=== PATIENT | female | born 1990 | race African-American/Black ===

== ENCOUNTER 2021-06-01 16:24 | Emergency (ER) | payer BC, SELFPAY ==
[2021-06-01 16:39] VITALS: BP 145/80; PULSE 89; RESP 17; TEMP 36.6; O2SAT 100
--- NOTE | 2021-06-01 17:16 | ED.PREGNANCY ---
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 Reports she has had a normal ultrasound this . Her OB is Dr. Greer. Her blood type is A positive. Denies any pelvic cramping or urinary symptoms. Related Data Home Medications Medication Instructions Recorded Confirmed gut-vhamwgz-exkqm-irn pkg PO 06/01/21 [Chewable ] Allergies Allergy/AdvReac Type Severity Reaction Status Date / Time No Known Allergies Allergy Unverified 03/19/15 15:52 Review of Systems Review of Systems: CONSTITUTIONAL: Denies fever GASTROINTESTINAL: Denies abdominal pain GENITOURINARY: Denies dysuria or hematuria. All systems reviewed & are unremarkable except as noted in HPI and below PMFSH Past Medical History Medical History (Updated 06/01/21 @ 19:58 by Shanda Maravilla PA-C) No active medical problems Social History Social History (Updated 06/01/21 @ 17:19 by Shanda Maravilla PA-C) Smoking status: Never smoker Exam Narrative: GENERAL: Well-appearing, well-nourished, and in no acute distress. HEAD: Normocephalic, atraumatic. EYES: EOMI. CHEST: Clear to auscultation. No respiratory distress. No wheezes rales or rhonchi HEART: Regular rate and rhythm. No murmur heard. Normal peripheral pulses. ABDOMEN: Soft, nontender, nondistended, normal active bowel sounds. EXTREMITIES: Normal range of motion. No edema. SKIN: Warm, dry, no rash. NEURO: No focal deficits. Alert and oriented x3. PSYCH: Normal mood and affect PELVIC: Small amount of dark red blood in the vaginal vault Course Consultations Consultation #1: Spoke with Dr. Correa about patient and work-up. Date: 06/01/21 Time: 19:56 Vital Signs Vital signs: Vital Signs Temperature 97.8 F 06/01/21 16:39 Pulse Rate 89 06/01/21 16:39 Respiratory Rate 17 06/01/21 16:39 Blood Pressure 145/80 H 06/01/21 16:39 Pulse Oximetry 100 06/01/21 16:39 Temperature 97.8 F 06/01/21 16:39 Pulse Rate 81 06/01/21 18:26 Respiratory Rate 17 06/01/21 16:39 Blood Pressure 123/74 06/01/21 18:26 Pulse Oximetry 100 06/01/21 16:39 MDM - OB/Uterine Contractions MDM Narrative Medical decision making narrative: Patient presents the emergency department for vaginal bleeding. 13 weeks tomorrow. Her vitals are stable. Hemoglobin is 11.3. Patient is a positive. Reports she has had a normal ultrasound this . heart tones noted at 155 in the ED. Small amount of dark red blood noted in the vaginal vault. Spoke with Dr. Correa about patient and work-up. Patient is stable and felt appropriate for further outpatient evaluation. She was given warnings to return to the ER Lab Data Attestation: I reviewed the patient's lab results. Result diagrams: 06/01/21 17:06 Labs: Lab Results 06/01/21 06/01/21 06/01/21 Range/Units 17:06 17:06 17:07 WBC 8.3 (4.5-10.0) K/mm3 RBC 3.85 L (4.2-5.4) M/mm3 Hgb 11.3 L (12.0-15.0) g/dL Hct 34.5 L (37.0-47.0) % MCV 89.6 (80-100) fl MCH 29.4 (26-34) pg MCHC 32.8 (32-36) g/dl RDW 13.7 (11.5-14.5) % Plt Count 325 (150-375) k/mm3 MPV 10.1 (7.4-10.4) fl Immature Gran % (Auto) 0.8 H (0-0.5) % Neut % (Auto) 64.3 (45.5-73.1) % Lymph % (Auto) 27.6 (18.3-44.2) % [place] % (Auto) 5.9 (2.6-8.5) % Eos % (Auto) 1.0 (0-4.4) % Baso % (Auto) 0.4 (0.2-1.2) % Lymph # (Auto) 2.30 (0.9-3.2) K/mm3 [place] # (Auto) 0.5 (0.1-0.6) K/mm3 Eos # (Auto) 0.1 (0-0.3) K/mm3 Baso # (Auto) 0.0 (0.0-0.1) K/mm3 Abs Immat Gran (auto) 0.07 H (0.00-0.031) K/mm3 Absolute Nicola
[2021-06-01 17:25] LABS: Basophils Percent Auto 0.4 % (0.2-1.2); Eosinophils Absolute Auto 0.1 K/mm3 (0-0.3); Hematocrit 34.5 % (37.0-47.0); Hemoglobin 11.3 g/dL (12.0-15.0); Immature Granulocyte Absolute 0.07 K/mm3 (0.00-0.031); Immature Granulocyte Percent A 0.8 % (0-0.5); Lymphocytes Percent Auto 27.6 % (18.3-44.2); Mean Corpuscular HGB Conc 32.8 g/dl (32-36); Mean Corpuscular Hemoglobin 29.4 pg (26-34); Mean Corpuscular Volume 89.6 fl (80-100); Mean Platelet Volume 10.1 fl (7.4-10.4); Monocytes Absolute Auto 0.5 K/mm3 (0.1-0.6); Monocytes Percent Auto 5.9 % (2.6-8.5); Neutrophils Absolute Auto 5.4 K/mm3 (1.3-6.7); Neutrophils Percent Auto 64.3 % (45.5-73.1); Platelet Count Result 325 k/mm3 (150-375); Red Blood Count 3.85 M/mm3 (4.2-5.4); Red Cell Distribution Width 13.7 % (11.5-14.5); White Blood Count 8.3 K/mm3 (4.5-10.0)
[2021-06-01 18:25] VITALS: BP 119/71; PULSE 74
[2021-06-01 18:26] VITALS: BP 122/75; BP 123/74; PULSE 66; PULSE 81
[2021-06-01 20:02] VITALS: BP 144/80; PULSE 87; RESP 18; O2SAT 100
== END 2021-06-01 20:03 | disposition home or self-care (01) ==
PROVIDERS: Emergency Medicine; Emergency Provider Family Medicine
DX: O20.9 Hemorrhage in early pregnancy, unspecified (principal); Z3A.13 13 weeks gestation of pregnancy
CPT/HCPCS: 36415; 84702; 85025; 85461; 99284

== ENCOUNTER 2021-06-03 22:29 | Emergency (ER) | payer BC, SELFPAY ==
--- NOTE | ~2021-06-03 | US_ITS ---
US OB <= 14 weeks fetus DATE: 06/03/2021 23:42 INDICATION: Vaginal bleeding in patient TECHNIQUE: Real-time imaging, color flow imaging and Doppler analysis COMPARISON: None FINDINGS: The uterus measures 13 cm height, 6.3 cm AP and 6.9 cm transverse dimension. There is a gestational sac in the lower uterine segment. A remnant is suggested but no he art rate. Right ovary measures 3.7 x 2.2 x 2.7 cm. Left ovary measures 2.5 x 2.0 x 2.0 cm. No pelvic mass or ab normal free pelvic fluid collection is noted. IMPRESSION: demise. Impending Reviewed, dictated and finalized at [facility]. Reviewed, dictated and finalized at [facility]. IMPRESSION: demise. Impending
[2021-06-03 22:31] VITALS: BP 116/55; PULSE 65; RESP 18; TEMP 36.4; O2SAT 98
--- NOTE | 2021-06-03 22:43 | ED.FEMALEGU ---
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 Patient reports acute onset sharp, cramping abdominal pain approximately 2 hours ago. Patient states that she works from home, was finishing up work for the evening with acute onset of pain. Patient without radiation of the pain to the back, upper abdomen. No associated diarrhea, constipation, dysuria or hematuria. She does report vaginal bleeding that is moderate in nature with clots present. She states that this has otherwise been uncomplicated, no history of labor or complications in her previous pregnancies. She does have 2 living children. She follows with Dr. Greer for her obstetrical care. Her blood type is A; verified in the chart. No recent pelvic trauma. She does report vaginal intercourse 4 days ago. Related Data Home Medications Medication Instructions Recorded Confirmed tts-legpmmn-ktsdj-irn pkg PO 06/01/21 [Chewable ] Allergies Allergy/AdvReac Type Severity Reaction Status Date / Time No Known Allergies Allergy Unverified 06/03/21 22:56 Review of Systems Review of Systems: CONSTITUTIONAL: Denies fever, chills, or sweats. EYES: Denies visual changes, redness, or discharge. ENT: Denies rhinorrhea, congestion, sore throat, or otalgia. CARDIOVASCULAR: Denies chest pain, palpitations, or edema. RESPIRATORY: Denies cough or dyspnea. GASTROINTESTINAL: Reports lower pelvic pain without nausea or vomiting GENITOURINARY: Denies dysuria or hematuria. Reports vaginal bleeding and blood clots present. SKIN: Denies rash or itching. MUSCULOSKELETAL: Denies back pain, joint pain, or myalgia. NEUROLOGIC: Denies headache, numbness, or weakness. [facility] Past Medical History Medical History No active medical problems Social History Social History Smoking status: Never smoker Exam Narrative: GENERAL: Awake, alert, uncomfortable appearing HEAD: Normocephalic, atraumatic. EYES: PERRLA and EOMI. ENT: Nares clear, no rhinorrhea or epistaxis. Mucous membranes moist. NECK: Supple. CHEST: No respiratory distress, breathing even and non labored HEART: Regular rate, sinus rhythm ABDOMEN:Non distended, positive suprapubic tenderness without guarding, rebound or rigidity : Labia majora and minora normal without lesions. Vagina with blood present, no parts identified. No large blood clots. There is discomfort and tenderness on exam. Os is dilated to 1 cm. No cervical motion tenderness. No adnexal tenderness or fullness bilaterally. No other discharge present. EXTREMITIES: Normal range of motion. No edema. SKIN: Warm, dry, no rash. NEURO:No focal deficits. Alert and oriented x3 Course Vital Signs Vital signs: Vital Signs Temperature 36.4 C L 06/03/21 22:31 Pulse Rate 65 06/03/21 22:31 Respiratory Rate 18 06/03/21 22:31 Blood Pressure 116/55 L 06/03/21 22:31 Pulse Oximetry 98 06/03/21 22:31 Temperature 36.4 C L 06/03/21 22:31 Pulse Rate 74 06/03/21 23:17 Respiratory Rate 11 L 06/03/21 23:17 Blood Pressure 122/83 06/03/21 23:17 Pulse Oximetry 94 06/03/21 23:17 MDM - Female Genitourinary MDM Narrative Medical decision making narrative: Patient presented for evaluation of lower abdominal pain and vaginal bleeding in the setting of early . The time of assessment, ABCs are intact and vital signs are stable. No sign of significant hemorrhage on pelvic exam. There are some blood clots present in the vaginal vault. No brisk b
[2021-06-03 22:56] VITALS: BP 138/73; PULSE 77; RESP 16; O2SAT 100
--- NOTE | 2021-06-03 23:01 | PC.NURSE ---
u/s called in per kellen gayle
[2021-06-03 23:17] VITALS: BP 122/83; PULSE 74; RESP 11; O2SAT 94
[2021-06-03] MEDS: ONDANSETRON INJ 4 MG/2 ML VIAL IV PUSH (23:25)
[2021-06-03] MEDS: SODIUM CHLORIDE 0.9% IV 1,000 ML 999 ML IV CONT (23:26)
[2021-06-03] MEDS: MORPHINE SULFATE (*CRX) 4 MG/ML INJ IV PUSH (23:26)
--- NOTE | 2021-06-03 23:28 | PC.NURSE ---
Pt to ultrasound at this time
[2021-06-03 23:29] LABS: Basophils Percent Auto 0.3 % (0.2-1.2); Eosinophils Absolute Auto 0.1 K/mm3 (0-0.3); Eosinophils Percent Auto 0.7 % (0-4.4); Hematocrit 36.6 % (37.0-47.0); Hemoglobin 12.1 g/dL (12.0-15.0); Immature Granulocyte Absolute 0.06 K/mm3 (0.00-0.031); Immature Granulocyte Percent A 0.6 % (0-0.5); Lymphocytes Absolute Auto 1.82 K/mm3 (0.9-3.2); Lymphocytes Percent Auto 18.6 % (18.3-44.2); Mean Corpuscular HGB Conc 33.1 g/dl (32-36); Mean Corpuscular Hemoglobin 29.3 pg (26-34); Mean Corpuscular Volume 88.6 fl (80-100); Mean Platelet Volume 9.8 fl (7.4-10.4); Monocytes Absolute Auto 0.4 K/mm3 (0.1-0.6); Monocytes Percent Auto 3.9 % (2.6-8.5); Neutrophils Absolute Auto 7.4 K/mm3 (1.3-6.7); Neutrophils Percent Auto 75.9 % (45.5-73.1); Platelet Count Result 353 k/mm3 (150-375); Red Blood Count 4.13 M/mm3 (4.2-5.4); Red Cell Distribution Width 13.4 % (11.5-14.5); White Blood Count 9.8 K/mm3 (4.5-10.0)
[2021-06-03 23:41] LABS: Alanine Aminotransferase 11 U/L (4-35); Albumin Level 4.4 g/dL (3.5-5.1); Alkaline Phosphatase 73 U/L (38-126); Anion Gap 11 mmol/L (8-16); Aspartate Amino Transferase 21 U/L (14-36); Bilirubin,Total 0.2 mg/dL (0.2-1.3); Blood Urea Nitrogen 12 mg/dL (7-17); Calcium 9.3 mg/dL (8.4-10.2); Carbon Dioxide 28 mmol/L (22-30); Chloride 100 mmol/L (98-107); Estimated CRCL calculation 114 ml/min; Estimated Glomerular Filt Rate > 60; Glucose 133 mg/dL (65-110); Potassium 3.9 mmol/L (3.4-5.0); Sodium 139 mmol/L (137-145)
[2021-06-03 23:52] LABS: INR 0.9
[2021-06-03 23:53] LABS: Partial Thromboplastin Time 27.2 SECONDS (22.3-36.8)
[2021-06-04 00:43] LABS: Add Urine Microscopic? YES; Appearance Urine Cloudy (Clear); Bacteria Urine Trace /hpf; Bilirubin Urine Negative (Negative); Blood Urine 3+ (Negative); Color Urine Straw (Yellow); Glucose Urine UA Negative (Negative); Ketones Urine Negative (Negative); Leukocyte Esterase Ur Negative LEU/UL (Negative); Mucus Urine Rare /lpf; Nitrate Urine Negative (Negative); Protein Urine 1+ mg/dL (Negative); RBC Urine >75 /hpf (0-2); Specific Grav Ur 1.021 (1.001-1.035); Squamous Epithelial Cell Urine Few /hpf (Few); Urobilinogen Urine Negative mg/dL (<2.0)
[2021-06-04 00:55] VITALS: BP 124/70; PULSE 76; RESP 20; O2SAT 100
== END 2021-06-04 00:57 | disposition home or self-care (01) ==
PROVIDERS: Emergency Provider Emergency Medicine
DX: O03.4 Incomplete spontaneous abortion without complication (principal)
CPT/HCPCS: 36415; 76801; 80053; 81001; 81025; 84702; 85025; 85461; 85610; 85730; 87086; 87088; 96361; 96374; 96375; 99284; J2270; J2405; J7030

== ENCOUNTER 2021-06-08 11:14 | Outpatient (CLI) | payer BC, SELFPAY ==
--- NOTE | ~2021-06-08 | US_ITS ---
EXAMINATION: US pelvic complete EXAM DATE: 06/08/2021 11:49 INDICATION: Incomplete spontaneous . TECHNIQUE: Pelvic transabdominal sonogram was performed. There are multiple grayscale and Doppler im ages available for interpretation. There is no prior study for comparison. FINDINGS: Uterus measures 11.1 x 7.5 x 5.5 cm, and is morphologically normal. Endometrial stripe me asures 5 mm, within normal limits. There is no free pelvic fluid. Right adnexa: The ovary measures 4.2 x 2.6 x 2.3 cm and is morphologically normal. Ovarian vascular f low confirmed. Left adnexa: The ovary measures 3.2 x 2.4 x 1.7 cm and is morphologically normal. Ovarian vascular fl ow confirmed. IMPRESSION: 1. Unremarkable pelvic ultrasound exam. Reviewed, dictated and finalized at location [facility].
== END 2021-06-08 11:15 | disposition home or self-care (01) ==
PROVIDERS: Visit Provider Obstetrics & Gynecology
DX: O03.4 Incomplete spontaneous abortion without complication (principal); Z3A.00 Weeks of gestation of pregnancy not specified
CPT/HCPCS: 76856

== ENCOUNTER 2021-09-04 12:41 | Outpatient (CLI) | payer BC, SELFPAY ==
--- NOTE | ~2021-09-04 | US_ITS ---
US OB <= 14 weeks fetus DATE: 09/04/2021 13:43 INDICATION: Gestational age determination TECHNIQUE: Real-time imaging and Doppler analysis COMPARISON: 06/08/2021 pelvic ultrasound FINDINGS: The uterus measures 13.4 centers height, up to 6.8 cm anteroposterior dimension. A normal-a ppearing intrauterine gestational sac is identified with normal surrounding hyperechogenicity consist ent with decidual reaction. pole and yolk sac are identified. heart rate of 159 bpm. [place]-rump length averages 1.25 cm, consistent with estimated gestational age of 7 weeks 3 day +/- 5 days, AKANKSHA of 04/20/2022. The ovaries appear normal. IMPRESSION: Estimated gestational age is 7 weeks 3 days +/- 5 days; AKANKSHA is 04/20/2022 Reviewed, dictated and finalized at [facility]. Reviewed, dictated and finalized at location [facility]. DEVELOPER IMPRESSION: Estimated gestational age is 7 weeks 3 days +/- 5 days; AKANKSHA is 2021
== END 2021-09-04 12:42 | disposition home or self-care (01) ==
LOC: ANHIMG 12:43
PROVIDERS: PCP Student in an Organized Health Care Education/Training Program; Visit Provider Obstetrics & Gynecology
DX: Z36.9 Encounter for antenatal screening, unspecified (principal); Z3A.01 Less than 8 weeks gestation of pregnancy
CPT/HCPCS: 76801

== ENCOUNTER 2021-09-08 13:52 | Emergency (ER) | payer BC, SELFPAY ==
[2021-09-08 13:56] VITALS: BP 138/81; PULSE 79; RESP 18; TEMP 36.5; O2SAT 100
[2021-09-08 15:52] VITALS: BP 136/72; PULSE 72; TEMP 37.3; O2SAT 99
--- NOTE | 2021-09-08 17:52 | ED.GENADULT ---
HPI - General Adult General Chief complaint: Headache Stated complaint: Carbon monoxide exposure. Time Seen by Provider: 09/08/21 17:32 Source: patient and RN notes reviewed History of Present Illness HPI narrative: Patient is a 30 y/o female complaining of right sided headache starting this morning. She describes her pain as throbbing and rates it as 8/10. She took Tylenol, which did not help much. She has no nausea, vomiting, focal weakness or numbness. She state that there was some gas leak at work and she may have been exposed to carbon monoxide. Of note, she is about 6 week . She has no abdominal pain or vaginal bleeding. Related Data Home Medications Medication Instructions Recorded Confirmed rjo-ntznwxl-khpvy-irn 1 pkg PO 06/01/21 [Chewable ] Allergies Allergy/AdvReac Type Severity Reaction Status Date / Time No Known Allergies Allergy Unverified 06/03/21 22:56 Review of Systems Constitutional: Constitutional: Denies chills, Denies fever(s), Reports headache(s) and Denies weakness Eyes: Eyes: Denies blurry vision ENT: Reports headache(s) and Denies neck pain Cardiovascular: Cardiovascular: Denies chest pain and Denies dyspnea Respiratory: Respiratory: Denies cough and Denies dyspnea Gastrointestinal: Gastrointestinal: Denies abdominal pain, Denies diarrhea, Denies nausea and Denies vomiting Genitourinary: Genitourinary: Denies hematuria and Denies dysuria Musculoskeletal: Musculoskeletal: Denies back pain and Denies neck pain Neurologic: Reports headache(s) and Denies weakness PMFSH Past Medical History Medical History No active medical problems Social History Social History Smoking status: Never smoker Exam Const: General: no acute distress and well developed Orientation/consciousness: oriented to person, oriented to place, oriented to time and patient oriented x3 HENMT: Head: normocephalic Ears: external ears normal General nose exam: Normal external nose present Eyes: General: appearance normal, both eyes and all related structures Conjunctivae: conjunctivae normal Neck: Neck: normal visual inspection and full ROM Chest: Chest palpation & inspection: normal inspection of the chest and no tenderness Resp: Effort & Inspection: normal respiratory effort Auscultation: clear to auscultation bilaterally Cardio: Rate: regular rate Rhythm: regular rhythm GI: GI Palp: No abdominal tenderness and Yes Soft to palpation Skin: General skin exam: normal color and turgor normal Neuro: General: oriented to person, oriented to place, oriented to time and patient oriented x3 Cranial nerves: Yes CN's II-XII intact bilaterally Cognition (Neuro): normal cognition Speech: normal speech Motor exam (neuro): 5/5 motor strength present throughout Sensory Exam: normal sensation Coordination: cuxyel-di-yatj test normal and jxsb-re-wdpy test normal Extrem: General: normal to inspection, full ROM and no pedal edema Psych: Appearance: grossly normal Mental Status: mental status grossly normal Affect: normal affect Course Vital Signs Vital signs: Vital Signs Temperature 36.5 C 09/08/21 13:56 Pulse Rate 79 09/08/21 13:56 Respiratory Rate 18 09/08/21 13:56 Blood Pressure 138/81 09/08/21 13:56 Pulse Oximetry 100 09/08/21 13:56 Temperature 37.3 C 09/08/21 15:52 Pulse Rate 84 09/08/21 18:00 Respiratory Rate 18 09/08/21 18:00 Blood Pressure 132/69 09/08/21 18:00 Pulse Oximetry 100 09/08/21 18:00 Medical Decision Making MDM Narrative Medical decision making narrative: Low PO2 level on blood gas is noted. This is likely due to mixed venous sample. Vital Signs Vital Signs: Vital Signs Temperature 36.5 C 09/08/21 13:56 Pulse Rate 79 09/08/21 13:56 Respiratory Rate 18 09/08/21 13:56 Blood Pressure 138/81 09/08/21
[2021-09-08 17:53] LABS: Basophils Percent Auto 0.3 % (0.2-1.2); Eosinophils Absolute Auto 0.1 K/mm3 (0-0.3); Eosinophils Percent Auto 0.7 % (0-4.4); Hematocrit 32.8 % (37.0-47.0); Immature Granulocyte Absolute 0.05 K/mm3 (0.00-0.031); Immature Granulocyte Percent A 0.7 % (0-0.5); Lymphocytes Absolute Auto 1.86 K/mm3 (0.9-3.2); Lymphocytes Percent Auto 25.4 % (18.3-44.2); Mean Corpuscular HGB Conc 33.5 g/dl (32-36); Mean Corpuscular Hemoglobin 29.1 pg (26-34); Mean Corpuscular Volume 86.8 fl (80-100); Mean Platelet Volume 10.1 fl (7.4-10.4); Monocytes Absolute Auto 0.5 K/mm3 (0.1-0.6); Monocytes Percent Auto 6.2 % (2.6-8.5); Neutrophils Absolute Auto 4.9 K/mm3 (1.3-6.7); Neutrophils Percent Auto 66.7 % (45.5-73.1); Platelet Count Result 341 k/mm3 (150-375); Red Blood Count 3.78 M/mm3 (4.2-5.4); Red Cell Distribution Width 13.4 % (11.5-14.5); White Blood Count 7.3 K/mm3 (4.5-10.0)
[2021-09-08] MEDS: ACETAMINOPHEN 325 MG TABLET 650 MG PO (17:58)
[2021-09-08 18:00] VITALS: BP 132/69; PULSE 84; RESP 18; O2SAT 100
[2021-09-08 18:06] LABS: Anion Gap 7 mmol/L (8-16); Blood Urea Nitrogen 11 mg/dL (7-17); Calcium 8.8 mg/dL (8.4-10.2); Carbon Dioxide 27 mmol/L (22-30); Chloride 98 mmol/L (98-107); Estimated CRCL calculation 138 ml/min; Estimated Glomerular Filt Rate > 60; Glucose 110 mg/dL (65-110); Potassium 3.3 mmol/L (3.4-5.0); Sodium 132 mmol/L (137-145)
[2021-09-08 18:08] LABS: Alveolar/Arterial O2 Gradient 15.7 mmHg; Fractional Inspired Oxygen 21 %; HCO3 ABG 24.9 mEq/l (22.0-26.0); Oxygen Content ABG 16.6 %vol (16.0-22.0); Oxygen Saturation ABG 97.2 % (95.0-100.0); Oxyhemoglobin 95.7 % THb (90.0-100.0); PO2 ABG 89.7 mmHg (80.0-100.0); PO2 FiO2 Ratio Arterial Blood 4.27 %; Total Hemoglobin 12.3 g/dL (12.0-18.0); pH ABG 7.445 (7.350-7.450)
[2021-09-08 18:09] LABS: Device ROOM AIR; Modified Allen's Test Pass; Site Drawn RIGHT RADIAL
[2021-09-08 18:26] LABS: Add Urine Microscopic? YES; Appearance Urine Cloudy (Clear); Bilirubin Urine Negative (Negative); Blood Urine Negative (Negative); Color Urine Yellow (Yellow); Glucose Urine UA Negative (Negative); Ketones Urine Negative (Negative); Leukocyte Esterase Ur Trace LEU/UL (Negative); Mucus Urine Rare /lpf; Nitrate Urine Negative (Negative); Protein Urine Negative (Negative); Specific Grav Ur 1.016 (1.001-1.035); Squamous Epithelial Cell Urine Many /hpf (Few); Urobilinogen Urine Negative mg/dL (<2.0)
[2021-09-08 19:48] LABS: Alveolar/Arterial O2 Gradient 56.7 mmHg; Base Excess ABG 1.1 mEq/l (+/-2.0); Carboxyhemoglobin 0.3 % THb (0-2.0); Fractional Inspired Oxygen 21 %; HCO3 ABG 26.3 mEq/l (22.0-26.0); Methemoglobin ABG 0.2 %THb (0-1.5); Oxygen Content ABG 12.3 %vol (16.0-22.0); PCO2 ABG 44.3 mmHg (35.0-45.0); Reduced Hemoglobin 29.4 %THb (0-5.0); Total Hemoglobin 12.5 g/dL (12.0-18.0); pH ABG 7.392 (7.350-7.450)
[2021-09-08 19:55] LABS: Device ROOM AIR; Modified Allen's Test Pass; Oxygen Saturation ABG 74.4 % (95.0-100.0); Oxyhemoglobin 70.1 % THb (90.0-100.0); Site Drawn RIGHT RADIAL
[2021-09-08 20:12] VITALS: BP 117/69; PULSE 70; RESP 16; O2SAT 98
== END 2021-09-08 20:13 | disposition home or self-care (01) ==
PROVIDERS: Emergency Provider Emergency Medicine; PCP Student in an Organized Health Care Education/Training Program
DX: O99.351 Diseases of the nervous system complicating pregnancy, first trimester (principal); G43.909 Migraine, unspecified, not intractable, without status migrainosus; Z3A.01 Less than 8 weeks gestation of pregnancy
CPT/HCPCS: 36415; 36600; 80048; 81001; 81025; 82375; 82805; 83050; 85025; 99283; A9270

== ENCOUNTER 2022-04-04 15:27 | Observation (INO) | payer BC, SELFPAY ==
--- NOTE | 2022-04-04 15:27 | OBADM ---
This patient, Elvia Guevara, admitted to the OB room OB Post 117 for observation. Patient/family oriented to hospital policies and general routines including ID bracelet, bed and alarms, visiting hours, pain management, procedures, bathroom and other care routines, personal items, smoking policy, room service/diet, and visiting hours. Patient/Family are encouraged to report perceived risks to care and to ask questions if they do not understand what they are told or what they should do.
[2022-04-04 15:44] VITALS: BP 135/65; PULSE 91
[2022-04-04 15:57] VITALS: BMI 48.1
[2022-04-04 16:00] LABS: Appearance Urine Cloudy (Clear); Bilirubin Urine Negative (Negative); Blood Urine Negative (Negative); Color Urine Yellow (Yellow); Glucose Urine UA Negative (Negative); Ketones Urine Negative (Negative); Leukocyte Esterase Ur 1+ LEU/UL (NEGATIVE); Nitrate Urine Negative (Negative); Protein Urine Negative (Negative); Urobilinogen Urine 0.2 mg/dL (<2.0); pH Urine 7.5 (5.0-9.0)
[2022-04-04 16:09] LABS: Bacteria Urine Trace /hpf; RBC Urine 0-2 /hpf (0-2); Squamous Epithelial Cell Urine Many /hpf (Few)
[2022-04-04 16:17] LABS: Add Urine Microscopic? YES
[2022-04-04] MEDS: ACETAMINOPHEN 500 MG TABLET 1000 MG PO (16:34)
--- NOTE | 2022-04-13 18:06 | PM.OBTRLD ---
OB - Triage/Final Diagnosis Visit Information Reason for evaluation: threatened labor Comments/Additional reasons for admission: I have assessed the risk for this patient, Elvia Guevara, and determined that she would benefit from observation care. Evaluation Laboratory results: Laboratory Tests 04/04/22 15:53 Urine Color Yellow Urine Appearance Cloudy H Urine pH 7.5 Ur Specific [place] 1.020 Urine Protein Negative Urine Glucose (UA) Negative Urine Ketones Negative Ur Blood (Man) Negative Urine Nitrate Negative Urine Bilirubin Negative Urine Urobilinogen 0.2 Ur Leukocyte Esterase 1+ H Urine RBC 0-2 Urine WBC 4-6 H Ur Squamous Epith Cells Many H Urine Bacteria Trace
== END 2022-04-04 16:40 | disposition home or self-care (01) ==
PROVIDERS: Obstetrics & Gynecology Gynecology; Admitting Provider Obstetrics & Gynecology; PCP Student in an Organized Health Care Education/Training Program; Visit Provider Obstetrics & Gynecology
DX: O47.1 False labor at or after 37 completed weeks of gestation (principal); Z3A.37 37 weeks gestation of pregnancy
CPT/HCPCS: 81001; 87086; 87088; A9270; G0378; G0379

== ENCOUNTER 2022-04-14 08:03 | Outpatient (CLI) | payer BC, SELFPAY ==
[2022-04-14 09:09] LABS: Hematocrit 31.7 % (37.0-47.0); Hemoglobin 9.6 g/dL (12.0-15.0)
[2022-04-15 07:25] LABS: Rapid Plasma Reagin Non-Reactive (NonReactive)
== END 2022-04-14 08:04 | disposition home or self-care (01) ==
LOC: ANHLAB 08:06
PROVIDERS: PCP Student in an Organized Health Care Education/Training Program; Visit Provider Obstetrics & Gynecology
DX: Z34.93 Encounter for supervision of normal pregnancy, unspecified, third trimester (principal); Z3A.00 Weeks of gestation of pregnancy not specified
CPT/HCPCS: 36415; 85014; 85018; 86592; 86850; 86900; 86901

== ENCOUNTER 2022-04-15 10:02 | Inpatient (IN) | payer BC, SELFPAY ==
[2022-04-15] VITALS (41 sets, daily range): BP systolic 99–123; BP diastolic 43–96; PULSE 66–87; RESP 16–20; TEMP 36.3–36.6; O2SAT 94–100; BMI 45.3
--- NOTE | 2022-04-15 09:58 | PM.IMHP ---
H&P: HPI History of Present Illness Date/Time: 04/15/22 09:58 31-year-old 3 para 2001 female presents for repeat delivery at 39 weeks. records are on the chart but she has had no significant abnormalities throughout this . Chief Complaint: PMFSH Past Medical History Medical History (Updated 04/15/22 @ 10:01 by Attila Greer MD) Anemia taking iron No active medical problems Surgical History Surgical History Delivery by section (09/03/08) primary c/s Delivery by section (03/05/15) rpt c/s History of cosmetic plastic surgery (04/20/20) Liposuction History of gynecological procedure (~10/28/08) mirena iud insertion History of gynecological procedure (12/24/13) mirena iud removal Family History Family History Grandparent Diabetes mellitus maternal grandmother Social History Social History Smoking status: Never smoker Alcohol intake: never Substance use: never 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 Gender identity (if verbalized by the patient): Female Sexual Orientation (if Verbalized by the Patient): Straight or Heterosexual Spiritual care concerns: No Meds Home Medications and Allergies Home Medications Medication Instructions Recorded Confirmed Type ljd-fnsuopc-qncgk-irn < 1 1 pkg PO 06/01/21 03/26/22 History mg-iron oral combo pack ferrous sulfate 325 mg (65 mg 325 mg PO TID 04/05/22 04/05/22 History iron) tablet Allergies Allergy/AdvReac Type Severity Reaction Status Date / Time No Known Allergies Allergy Verified 04/09/22 11:10 Exam Const: General: cooperative, healthy appearing and comfortable Resp: Effort & Inspection: normal respiratory effort Auscultation: clear to auscultation bilaterally Cardio: Rate: regular rate Rhythm: regular rhythm GI: Inspection: normal to inspection, scar and other (Fundal height 42cm) Auscultation: normal bowel sounds : External Female Exam: normal external appearance Speculum Exam - Vagina: normal appearance of the vagina Speculum Exam - Cervix: normal appearance of the cervix Bimanual exam- vagina & uterus: enlarged (42cm heart tone 140) Assessment and Plan Assessment and plan (1) 39 weeks gestation of : Code(s): Z3A.39 - 39 weeks gestation of Status: Acute (2) Previous delivery affecting : Code(s): O34.219 - Maternal care for unspecified type scar from previous delivery Status: Acute Plan Proceed with repeat low transverse section.
--- NOTE | 2022-04-15 10:01 | WPDHPUPDATE1 ---
History and Physical Update Update Date/Time: 04/15/22 10:01 History and Physical has been reviewed, including an updated exam of the patient. There are NO changes in the patient's condition. Risks, benefits, and alternatives have been discussed and questions answered. Patient agrees to proceed with procedure.
--- NOTE | 2022-04-15 10:39 | LDADM ---
This patient, Elvia Guevara, was admitted to Labor/Delivery/Recovery 118 on 04/15/22 at 10:02. Plans for labor, pain management and were discussed with patient. Patient/family oriented to hospital policies and general routines including ID bracelet, bed and alarms, visiting hours, pain management, procedures, bathroom and other care routines, personal items, smoking policy, room service/diet and guest tray routines, infant security routines, and visiting hours. Patient/Family are encouraged to report perceived risks to care and to ask questions if they do not understand what they are told or what they should do. See OBIX for further documentation.
--- NOTE | 2022-04-15 10:52 | P.PNAN_ITS ---
Anes - Eval Pre Procedure Procedure: Operation Date: 04/15/22 12:00 Proposed Procedures p Repeat Section - Attila Greer MD Date/Time: 04/15/22 10:52 Pre Op Diagnosis: REPEAT C/S Patient Data Age: 31 Gender: F Height: 1.63 m Weight: 120 kg Last Vital Signs Pulse 85 04/15/22 10:31 BP 121/73 04/15/22 10:31 O2 Del Method Room Air 04/15/22 10:38 Allergies Allergy/AdvReac Type Severity Reaction Status Date / Time No Known Allergies Allergy Verified 04/09/22 11:10 Home Medications Medication Instructions Recorded Confirmed Type kjw-rdcagmg-uaytl-irn < 1 1 pkg PO 06/01/21 03/26/22 History mg-iron oral combo pack ferrous sulfate 325 mg (65 mg 325 mg PO TID 04/05/22 04/05/22 History iron) tablet Patient hx anesthesia problems: none Family hx anesthesia problems: none Results Review: All pre-operative results and documents have been reviewed as part of the pre- operative evaluation. [facility] Past Medical History Medical History Anemia taking iron No active medical problems Surgical History Surgical History Delivery by section (09/03/08) primary c/s Delivery by section (03/05/15) rpt c/s History of cosmetic plastic surgery (04/20/20) Liposuction History of gynecological procedure (~10/28/08) mirena iud insertion History of gynecological procedure (12/24/13) mirena iud removal Family History Family History Grandparent Diabetes mellitus maternal grandmother Social History Social History Smoking status: Never smoker Alcohol intake: never Substance use: never 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
[2022-04-15] MEDS: LACTATED RINGERS 1,000 ML 125 ML IV CONT (11:07)
[2022-04-15 11:10] LABS: Basophils Percent Auto 0.3 % (0.2-1.2); Eosinophils Percent Auto 0.3 % (0-4.4); Hemoglobin 9.2 g/dL (12.0-15.0); Immature Granulocyte Absolute 0.12 K/mm3 (0.00-0.031); Immature Granulocyte Percent A 1.4 % (0-0.5); Lymphocytes Absolute Auto 1.41 K/mm3 (0.9-3.2); Lymphocytes Percent Auto 16.3 % (18.3-44.2); Mean Corpuscular HGB Conc 29.7 g/dl (32-36); Mean Corpuscular Hemoglobin 24.5 pg (26-34); Mean Corpuscular Volume 82.7 fl (80-100); Mean Platelet Volume 10.5 fl (7.4-10.4); Monocytes Absolute Auto 0.6 K/mm3 (0.1-0.6); Monocytes Percent Auto 6.9 % (2.6-8.5); Neutrophils Absolute Auto 6.5 K/mm3 (1.3-6.7); Neutrophils Percent Auto 74.8 % (45.5-73.1); Nucleated Red Blood Cells Perc 0.2 % (0.0-0.2); Platelet Count Result 274 k/mm3 (150-375); Red Blood Count 3.75 M/mm3 (4.2-5.4); Red Cell Distribution Width 20.1 % (11.5-14.5); White Blood Count 8.7 K/mm3 (4.5-10.0)
--- NOTE | 2022-04-15 11:25 | P.PNAN_ITS ---
Anes - Eval Final PreProcedure Day of Procedure 04/15/22 11:25 Patient weight: morbidly obese Heart: regular rate and rhythm Lungs: clear to auscultation and normal air movement Airway: Mallampati scale class II Neurological: alert and oriented Last oral intake: >/= 8 hours ASA classification: III Emergent: no Anesthetic plan: proceed Anesthesia type and monitoring: regional spinal Results Review: All pre-operative results and documents have been reviewed as part of the pre- operative evaluation. Informed Consent: The patient's anesthetic plan and its attendant risks and benefits were discusse d with the patient/family/POA. Questions were solicited and answers provided to the satisfaction of the patient/family/POA.
[2022-04-15 11:49] LABS: Macrocytosis 1+ (NORMAL); Platelet Estimate Adequate (Adequate); Poikilocytosis 1+ (NORMAL); Spherocytes 1+ (NORMAL)
[2022-04-15 11:50] LABS: Burr Cells 1+ (NORMAL); Crenated RBC 1+ (NORMAL); Helmet Cells 1+ (NORMAL)
--- NOTE | 2022-04-15 13:20 | PM.OBPRVD ---
OB - Delivery Note Procedure Procedure: Procedures Operation Date: 04/15/22 12:00 <No data on this case meets the specified criteria> Events: Previous Delivery Route of delivery: Quantitative Blood Loss (ml): 1,833 Anesthesia type: Spinal Disposition: PACU Complications: Intraoperative hemorrhage of 1800cc Narrative: Patient prepped and draped manner this procedure. Pfannenstiel was made and carried down to the fascia. This was extended bilaterally the length of the skin incision superiorly and inferiorly fascia was dissected away from rectus muscles. Peritoneum entered difficulty a bladder flap was developed. Lower segment was incised and extended bilaterally length lower segment. Attempt to deliver baby this point was unsuccessful for uterine incision was T'd and the vertex delivered without difficulty as well as the rest of baby. Cord was clamped and cut baby was passed off the operative field and the placenta manually. The uterine incision was bleeding briskly and clamps were placed on the larger bleeders. First the T incision was approximated using 0 Monocryl a 1st layer and then a 2nd layer imbricating with good hemostasis noted. Uterine incision was then approximated using running interlocking 0 Monocryl suture with good approximation hemostasis noted. Uterus was turned to the abdomen gutters cleared of serosanguineous fluid and clots and uterine incisions were all noted be hemostatic. Saniya was placed empirically throughout. Fascia was approximated 0 Vicryl from left angle midline in the right angle midline with good approximation noted. Subcutaneous tissue was irrigated approximated using 0 plain suture and joao to approximate the skin edges. Patient was then sent to recovery room in stable condition. Baby Weeks of gestation at delivery: 39 Infant gender: Female Weight (pounds): 8 Weight (ounces): 0 presentation: vertex Placenta delivery description: Manual Removal Cord Vessel Description: 3 Vessels score one minute: 8 score five minutes: 9 AMG Delivery Billing Delivery Delivery: Delivery Charge
[2022-04-15] MEDS: OXYTOCIN 30 UNITS/NS 500 ML 30 UNITS/500 ML BAG 125 UNITS IV CONT (14:12)
--- NOTE | 2022-04-15 15:50 | OBPPTRN ---
Patient transferred to post room #287 via stretcher. Support person present. Oriented to unit, room, information board, rooming in, admission packet and security measures. Patient verbalizes understanding.
[2022-04-15] MEDS: DEXTROSE 5%/0.45% SOD CHL 1,000 ML 125 ML IV CONT (18:30)
[2022-04-15] MEDS: HYDROcodone/acetaminophen (*CRX) 5-325 MG TABLET 1 TAB PO (20:53)
[2022-04-16] MEDS: HYDROcodone/acetaminophen (*CRX) 10-325 MG TABLET 1 TAB PO ×4 (05:03→20:44)
--- NOTE | 2022-04-16 06:49 | PM.OBPNVD ---
OB - PN: Subj Subjective Date/time seen: 04/16/22 06:49 Narrative: POD#1 Elvia reports doing well today. Her bleeding is light. Her pain is controlled with PO pain meds. She is tolerating regular diet, passing gas, and has ambulated. Rodriguez catheter was just removed; no spontaneous void yet. She denies any issues with her incision. She is breast feeding. OB - PN: Obj Data Labs CBC & Chem 7: 04/16/22 07:57 Labs: Laboratory Results - last 24 hr 04/15/22 10:44 WBC 8.7 RBC 3.75 L Hgb 9.2 L Hct 31.0 L MCV 82.7 MCH 24.5 L MCHC 29.7 L RDW 20.1 H Plt Count 274 MPV 10.5 H Immature Gran % (Auto) 1.4 H Neut % (Auto) 74.8 H Lymph % (Auto) 16.3 L [place] % (Auto) 6.9 Eos % (Auto) 0.3 Baso % (Auto) 0.3 Lymph # (Auto) 1.41 [place] # (Auto) 0.6 Eos # (Auto) 0.0 Baso # (Auto) 0.0 Abs Immat Gran (auto) 0.12 H Absolute Neuts (auto) 6.5 Absolute Nucleated RBC 0.0 Nucleated RBC % 0.2 Platelet Estimate Adequate Poikilocytosis 1+ Macrocytosis 1+ Spherocytes 1+ Helmet Cells 1+ Luis Cells 1+ Crenated Cell 1+ OB - PN A/P Assessment and Plan (1) S/P repeat low transverse : Code(s): Z98.891 - History of uterine scar from previous surgery Status: Acute Plan day: 1 Plan: routine care Comments: - awaiting cbc results; if <7 would need blood transfusion - pain meds, stay hydrated, normal diet - if no spontaneous void after 6 hours, will need catheter Time Spent With Patient Time: Total time spent is greater than 50% in coordination of care (as documented) at patient's floor/unit and/or counseling patient: Review of Systems Constitutional: Constitutional: Denies chills, Denies fever(s) and Denies headache(s) Eyes: Eyes: Denies change in vision ENT: Denies dizziness and Denies headache(s) Cardiovascular: Cardiovascular: Denies chest pain, Denies palpitations and Denies dyspnea Respiratory: Respiratory: Denies cough and Denies dyspnea Gastrointestinal: Gastrointestinal: Denies nausea and Denies vomiting Genitourinary: Comments: normal bleeding Neurologic: Denies dizziness and Denies headache(s) Endocrine: Endocrine: Denies palpitations Exam Const: General: cooperative, comfortable and no acute distress Orientation/consciousness: patient oriented x3 Resp: Effort & Inspection: normal respiratory effort Auscultation: clear to auscultation bilaterally Cardio: Rate: regular rate GI: Inspection: non-distended and incision (covered with clean dressing) GI Palp: Yes abdominal tenderness (appropriate) and Yes Soft to palpation Auscultation: normal bowel sounds : Other: fundus firm Skin: General skin exam: normal color Neuro: General: patient oriented x3 Extrem: General: normal to inspection Psych: Appearance: grossly normal Affect: normal affect Attitude: cooperative
[2022-04-16 08:02] LABS: Basophils Percent Auto 0.2 % (0.2-1.2); Eosinophils Percent Auto 0.2 % (0-4.4); Hematocrit 24.7 % (37.0-47.0); Hemoglobin 7.4 g/dL (12.0-15.0); Immature Granulocyte Absolute 0.08 K/mm3 (0.00-0.031); Immature Granulocyte Percent A 0.7 % (0-0.5); Lymphocytes Absolute Auto 0.94 K/mm3 (0.9-3.2); Lymphocytes Percent Auto 8.6 % (18.3-44.2); Mean Corpuscular Hemoglobin 24.8 pg (26-34); Mean Corpuscular Volume 82.9 fl (80-100); Mean Platelet Volume 10.2 fl (7.4-10.4); Monocytes Absolute Auto 0.7 K/mm3 (0.1-0.6); Monocytes Percent Auto 6.7 % (2.6-8.5); Neutrophils Absolute Auto 9.2 K/mm3 (1.3-6.7); Neutrophils Percent Auto 83.6 % (45.5-73.1); Platelet Count Result 208 k/mm3 (150-375); Red Blood Count 2.98 M/mm3 (4.2-5.4); Red Cell Distribution Width 20.1 % (11.5-14.5)
[2022-04-16 08:45] VITALS: BP 124/64; PULSE 97; RESP 18; TEMP 37.7; O2SAT 96
[2022-04-16] MEDS: DOCUSATE SODIUM 100 MG CAPSULE PO ×2 (09:01→17:45)
[2022-04-16] MEDS: POLYSACCHARIDE IRON COMPLEX 150 MG CAPSULE PO ×2 (09:01→17:46)
[2022-04-16] MEDS: MULTIVIT/MIN/PREN/FOL AC/IRON TABLET 1 TAB PO (09:02)
[2022-04-16] MEDS: TETANUS,DIPHTHERIA,AC PERTUSSIS ADULT (0.5 ML) BOOSTRIX IM (09:02)
[2022-04-16] MEDS: LORATADINE 10 MG TABLET PO (09:36)
--- NOTE | 2022-04-16 11:13 | PC.NURSE ---
[id number] Introductions were made, then consulted with patient to assess needs related to . Mother led the conversation with her?good experiences with her children in the past. As requested by mother RN reviewed the signs to watch for reassurance of intake by my pie instruction of wets, stools, weight, jaundice levels, and eating 8-12 times in 24 hours. Offered to return and reviewed suck/swallows with the next feeding and how to listen and watch for the infant to demonstrate them if she desires. Resources provided for inpatient and outpatient services using a resource guide and mom/baby guide. Mother voiced understanding of information and will call if there is a request for assistance. Reported to primary RN.
[2022-04-16 12:09] VITALS: BP 121/49; PULSE 102; RESP 18; TEMP 36.9; O2SAT 100
--- NOTE | 2022-04-16 12:59 | WPDANLDPN2 ---
Anes-Prog Note L&D Date/Time: 04/16/22 12:59 Comfortable throughout: section Neuraxial method: spinal Epidural/Spinal procedure site: clean & non-tender Neuro status: Neuro function grossly intact. Cardiovascular status: normal Respiratory status: normal Airway patency: baseline Mental status: baseline Post-Op hydration status: normal Vital Signs: Last Vital Signs Temp 36.9 C 04/16/22 12:09 Pulse 102 H 04/16/22 12:09 Resp 18 04/16/22 12:09 BP 121/49 L 04/16/22 12:09 Pulse Ox 100 04/16/22 12:09 O2 Del Method Room Air 04/15/22 18:30 Pain score (VAS): 09/28 I/O: Intake & Output 04/15/22 04/16/22 04/16/22 23:59 07:59 15:59 Intake Total 2000 300 Output Total 750 500 600 Balance -750 1500 -300 Post-procedural complaints: none Patient feedback: Patient satisfied with anesthetic care.
[2022-04-16 20:50] VITALS: BP 127/71; PULSE 102; RESP 16; TEMP 36.4; O2SAT 100; O2SAT 97
[2022-04-17 06:01] LABS: Hematocrit 23.3 % (37.0-47.0); Hemoglobin 7.2 g/dL (12.0-15.0); Mean Corpuscular HGB Conc 30.9 g/dl (32-36); Mean Corpuscular Hemoglobin 25.4 pg (26-34); Mean Platelet Volume 9.9 fl (7.4-10.4); Platelet Count Result 235 k/mm3 (150-375); Red Blood Count 2.84 M/mm3 (4.2-5.4); Red Cell Distribution Width 20.1 % (11.5-14.5); White Blood Count 11.5 K/mm3 (4.5-10.0)
[2022-04-17 08:30] VITALS: BP 132/85; PULSE 107; RESP 18; TEMP 36.8; O2SAT 97
[2022-04-17] MEDS: POLYSACCHARIDE IRON COMPLEX 150 MG CAPSULE PO (08:44)
[2022-04-17] MEDS: HYDROcodone/acetaminophen (*CRX) 10-325 MG TABLET 1 TAB PO (08:44)
[2022-04-17] MEDS: DOCUSATE SODIUM 100 MG CAPSULE PO (08:45)
[2022-04-17] MEDS: MULTIVIT/MIN/PREN/FOL AC/IRON TABLET 1 TAB PO (08:45)
--- NOTE | 2022-04-17 10:20 | PM.OBDSVD ---
DS: Admitting Diagnosis Discharge Date 04/17/22 Admitting Diagnosis Repeat section DS: Discharge Diagnosis Discharge Diagnosis (1) S/P repeat low transverse : Code(s): Z98.891 - History of uterine scar from previous surgery Status: Acute OB - DS: Summary OB Procedures : Ultrasound OB Procedures Intrapartum: OB Procedures: : None Peripartum Data Infant Delivery Method: Section Procedures: Procedures Operation Date: 04/15/22 12:00 Actual Procedure Side Surgeon p Repeat Section Bilateral Attila Greer MD complications: none 1: Gender: Female Disposition of : home Status at Discharge Functional status at discharge: independent ambulation Overall status at discharge: patient is back to baseline Time Spent with Patient Time attestation: Total time spent providing and/or coordinating discharge services: Time spent: Less than 30 minutes Exam Const: General: cooperative, comfortable and no acute distress Nutritional Appearance: obese Orientation/consciousness: patient oriented x3 Resp: Effort & Inspection: normal respiratory effort Auscultation: clear to auscultation bilaterally Cardio: Rate: regular rate GI: Inspection: non-distended and incision (closed with joao) GI Palp: Yes abdominal tenderness (appropriate) and Yes Soft to palpation Auscultation: normal bowel sounds : Other: fundus firm Skin: General skin exam: normal color Neuro: General: patient oriented x3 Extrem: General: normal to inspection Psych: Appearance: grossly normal Affect: normal affect Attitude: cooperative DS: Data Data Completed and Pending Labs on day of discharge: Labs from last 24 hours 04/17/22 05:52 WBC 11.5 H RBC 2.84 L Hgb 7.2 L Hct 23.3 L MCV 82.0 MCH 25.4 L MCHC 30.9 L RDW 20.1 H Plt Count 235 MPV 9.9 Discharge Plan Discharge Attending physician on discharge: Seeam Correa Discharging Clinician: Seema Correa Anticipated Discharge Date/Time: 04/17/22 14:00 Patient Disposition: Home, Self-Care Activity: may shower, may drive after 2 weeks, pelvic rest and other - see discharge instructions Diet: regular Discharge Instructions: Nothing in the vagina for 6 weeks. No lifting over 10 pounds for 6 weeks. Patient Instructions: Antibiotic Form Stand Alone Forms: General Discharge Information Follow-up/Referrals: Attila Greer MD [Physician] - 4 Weeks Discharge Medications: New acetaminophen [Mapap (acetaminophen)] 325 mg Tablet 650 mg PO Q6H PRN (Reason: Mild Pain (1-3)) 10 Days Qty: 60 0RF hydrocodone-acetaminophen 5-325 mg Tablet 1 tablet PO Q3H PRN (Reason: Moderate Pain (4-6)) 3 Days Qty: 24 0RF docusate sodium 100 mg Capsule 100 mg PO BID 90 Days Qty: 180 0RF Continued wiu-rqatokb-gnzhk-irn < 1 mg Combo Pack 1 pkg PO ferrous sulfate 325 mg (65 mg iron) Tablet 325 mg PO TID 90 Days Qty: 270 0RF Date of admission: 04/15/22 10:02 Primary Care Provider: Beatrice,Andrew Admitting Provider: Attila Greer Attending physician on admission: Attila Greer Condition: Stable
[2022-04-20 09:23] VITALS: BP 149/81; PULSE 103; RESP 20; TEMP 36.8
== END 2022-04-17 13:25 | disposition home or self-care (01) | DRG 788 ==
LOC: ANHOB2 04-17 13:00 → ANHLDR 04-20 12:18
PROVIDERS: Admitting Provider Obstetrics & Gynecology; PCP Student in an Organized Health Care Education/Training Program; Visit Provider Obstetrics & Gynecology
PROC: 10D00Z1 Extraction of Products of Conception, Low, Open Approach (ICD-10-PCS; CPT 59514; principal; 2022-04-15 12:00)
DX: O34.219 Maternal care for unspecified type scar from previous cesarean delivery (principal); O99.02 Anemia complicating childbirth; D64.9 Anemia, unspecified; O99.214 Obesity complicating childbirth; E66.01 Morbid (severe) obesity due to excess calories; Z3A.39 39 weeks gestation of pregnancy; Z37.0 Single live birth
CPT/HCPCS: 36415; 85025; 85027; 90715; A9270; J0131; J2274; J2370; J2405; J2590; J7120

== ENCOUNTER 2022-05-09 00:09 | Emergency (ER) | payer BC, SELFPAY ==
[2022-05-09] VITALS (19 sets, daily range): BP systolic 135–157; BP diastolic 78–96; PULSE 67–70; RESP 14–16; TEMP 36.8; O2SAT 95–100
--- NOTE | ~2022-05-09 | XR_ITS ---
EXAMINATION: XR lumbar spine 2-3V DATE: 05/09/2022 02:05 INDICATION: Bilateral lower extremity paresthesias. Low back pain. TECHNIQUE: 3 views of lumbar spine were obtained. COMPARISON: None. FINDINGS: There is 8 degrees levocurvature of thoracolumbar spine. Vertebral body heights and interve rtebral disc heights are normal. The facet joints are unremarkable. IMPRESSION: 1. No etiology for the patient's symptoms. Reviewed, dictated and finalized at location A.
--- NOTE | 2022-05-09 01:04 | ED.LOWEXIN ---
HPI - Extremity Injury (Lower) General Chief Complaint: Extremity Injury, Lower Stated Complaint: Bilateral leg numbness/tingling Time Seen by Provider: 05/09/22 00:52 History of Present Illness HPI Narrative: 31-year-old female presents the emergency room for evaluation of numbness and tingling in bilateral lower extremities. Patient states the sensation has been present for over a week. Denies any known injury or trauma. Patient states 3 weeks ago she gave is concerned that she may have a blood clot. States the numbness and tingling became more intense this evening approximately 2 hours ago. States the numbness and tingling was primarily on the left mosley, until recently she noticed and sensation in bilateral calves. Denies any difficulty ambulating. Related Data Home Medications Medication Instructions Recorded Confirmed ows-eqwunob-odirj-irn < 1 1 pkg PO 06/01/21 03/26/22 mg-iron oral combo pack Allergies Allergy/AdvReac Type Severity Reaction Status Date / Time No Known Allergies Allergy Verified 04/09/22 11:10 Review of Systems Review of Systems: CONSTITUTIONAL: Denies fever, chills, or sweats. EYES: Denies visual changes, redness, or discharge. ENT: Denies rhinorrhea, congestion, sore throat, or otalgia. CARDIOVASCULAR: Denies chest pain, palpitations, or edema. RESPIRATORY: Denies cough or dyspnea. GASTROINTESTINAL: Denies abdominal pain, nausea, vomiting, or diarrhea. GENITOURINARY: Denies dysuria or hematuria. SKIN: Denies rash or itching. MUSCULOSKELETAL: Denies back pain, joint pain, or myalgia. NEUROLOGIC: Reports paresthesias in bilateral lower extremities PSYCHIATRIC: Denies anxiety or depression. [facility] Past Medical History Medical History Anemia taking iron No active medical problems Surgical History Surgical History Delivery by section (09/03/08) primary c/s Delivery by section (03/05/15) rpt c/s Delivery by section (04/15/22) rpt c/ s History of cosmetic plastic surgery (04/20/20) Liposuction History of gynecological procedure (~10/28/08) mirena iud insertion History of gynecological procedure (12/24/13) mirena iud removal Family History Family History Grandparent Diabetes mellitus maternal grandmother Social History Social History Smoking status: Never smoker Alcohol intake: never Substance use: never 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 HEAD: Normocephalic, atraumatic. EYES: Conjunctivae normal, PERRLA and EOMI. CHEST: Clear to auscultation. No respiratory distress. No wheezes rales or rhonchi. No tenderness. HEART: Regular rate and rhythm. No murmur heard. Normal peripheral pulses. BACK: No lumbar tenderness, step-offs, or bony abnormality; FROM EXTREMITIES: Normal range of motion. No edema. No clubbing or cyanosis. Negative Homans' sign bilaterally. Distal pulses present SKIN: Warm, dry, no rash. No noted wounds NEURO: No focal deficits. Alert and oriented x3. MAEW. CN's II-XI intact bilaterally, normal gait, can differentiate between sharp/dull in multiple LE dermatomes PSYCH: Cooperative. Normal mood and affect. Course Vital Signs Vital signs: Vital Signs Temperature 36.8 C 05/09/22 00:12 Pulse Rate 67 05/09/22 00:12 Respiratory Rate 14 05/09/22 00:12 Blood Pressure 152/96 H 05/09/22 00:12 Pulse Oximetry 100 05/09/22 00:12 Oxygen Delivery Room Air 05/09/22 00:12 Temper
[2022-05-09 01:27] LABS: Basophils Percent Auto 0.7 % (0.2-1.2); Eosinophils Absolute Auto 0.4 K/mm3 (0-0.3); Eosinophils Percent Auto 5.8 % (0-4.4); Hematocrit 32.7 % (37.0-47.0); Hemoglobin 9.8 g/dL (12.0-15.0); Immature Granulocyte Absolute 0.02 K/mm3 (0.00-0.031); Immature Granulocyte Percent A 0.3 % (0-0.5); Lymphocytes Absolute Auto 2.22 K/mm3 (0.9-3.2); Lymphocytes Percent Auto 36.9 % (18.3-44.2); Mean Corpuscular Hemoglobin 25.1 pg (26-34); Mean Corpuscular Volume 83.8 fl (80-100); Monocytes Absolute Auto 0.4 K/mm3 (0.1-0.6); Monocytes Percent Auto 7.3 % (2.6-8.5); Neutrophils Absolute Auto 2.9 K/mm3 (1.3-6.7); Platelet Count Result 368 k/mm3 (150-375); Red Cell Distribution Width 19.5 % (11.5-14.5)
[2022-05-09 01:32] LABS: Appearance Urine Slightly Cloudy (Clear); Bilirubin Urine Negative (Negative); Blood Urine 3+ (Negative); Color Urine Yellow (Yellow); Glucose Urine UA Negative (Negative); Ketones Urine Negative (Negative); Leukocyte Esterase Ur 1+ LEU/UL (Negative); Nitrate Urine Negative (Negative); Protein Urine Negative (Negative); Specific Grav Ur 1.025 (1.001-1.035); Urobilinogen Urine 0.2 mg/dL (<2.0); pH Urine 6.5 (5.0-9.0)
[2022-05-09 01:38] LABS: Add Urine Microscopic? YES; Bacteria Urine Trace /hpf; Mucus Urine Rare /lpf; Squamous Epithelial Cell Urine Many /hpf (Few)
[2022-05-09 01:44] LABS: Alanine Aminotransferase 15 U/L (6-35); Albumin Level 3.8 g/dL (3.5-5.1); Alkaline Phosphatase 78 U/L (38-126); Anion Gap 9 mmol/L (8-16); Aspartate Amino Transferase 23 U/L (14-36); Bilirubin,Total 0.1 mg/dL (0.2-1.3); Blood Urea Nitrogen 14 mg/dL (7-17); Calcium 8.7 mg/dL (8.4-10.2); Carbon Dioxide 30 mmol/L (22-30); Chloride 101 mmol/L (98-107); Estimated CRCL calculation 121 ml/min; Estimated Glomerular Filt Rate > 60; Glucose 119 mg/dL (65-110); Potassium 3.7 mmol/L (3.4-5.0); Sodium 140 mmol/L (137-145)
[2022-05-09 01:52] LABS: D Dimer 1.53 ug/mL (<0.48)
== END 2022-05-09 02:21 | disposition home or self-care (01) ==
PROVIDERS: Emergency Provider Nurse Practitioner Family; PCP Student in an Organized Health Care Education/Training Program
DX: R20.2 Paresthesia of skin (principal); D64.9 Anemia, unspecified; Z79.899 Other long term (current) drug therapy
CPT/HCPCS: 36415; 72100; 80053; 81001; 85025; 85380; 87086; 87088; 99283

== ENCOUNTER 2022-11-18 09:06 | Emergency (ER) | payer BC, SELFPAY ==
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
--- NOTE | ~2022-11-18 | CT_ITS ---
Noncontrast CT scan of the cervical spine Technique: Multiple contiguous axial [address] images of the cervical spine were obtained and rec onstructed in 2D sagittal and coronal planes on the acquisition scanner. Dose reduction technique was used on this scan by utilizing automated exposure control, adjustment of the mA and/or kV according to patient size. Clinical History: Pain Findings: No fractures or dislocations. There is reversal normal cervical lordosis.. The interverteb ral disc spaces are preserved. No prevertebral soft tissue swelling. Impression: No fracture or subluxation of the cervical spine. Reversal normal cervical lordosis. Reviewed, dictated and finalized at location . 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 Reversal normal cervical lordosis.
[2022-11-18 09:17] VITALS: BP 133/93; PULSE 93; RESP 14; TEMP 37.1; O2SAT 100
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
[2022-11-18] MEDS: KETOROLAC (*BKC) 60 MG/2 ML VIAL IM (10:36)
[2022-11-18 10:48] VITALS: BP 140/90; PULSE 60; RESP 18; O2SAT 100
== END 2022-11-18 10:51 | disposition home or self-care (01) ==
PROVIDERS: Emergency Provider Physician Assistant; PCP Student in an Organized Health Care Education/Training Program
DX: S16.1XXA Strain of muscle, fascia and tendon at neck level, initial encounter (principal); D64.9 Anemia, unspecified; Y04.2XXA Assault by strike against or bumped into by another person, initial encounter; Y93.F9 Activity, other caregiving
CPT/HCPCS: 70450; 72125; 73030; 96372; 99284; J1885

== ENCOUNTER 2023-05-18 08:03 | Emergency (ER) | payer BC, SELFPAY ==
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
[2023-05-18 08:14] VITALS: BP 123/70; PULSE 58; RESP 16; TEMP 36.8; O2SAT 100
== END 2023-05-18 08:38 | disposition home or self-care (01) ==
PROVIDERS: Emergency Provider Nurse Practitioner; PCP Student in an Organized Health Care Education/Training Program
DX: S90.522A Blister (nonthermal), left ankle, initial encounter (principal); X58.XXXA Exposure to other specified factors, initial encounter
CPT/HCPCS: 99211; 99213; G0463

== ENCOUNTER 2024-11-26 15:38 | Outpatient (CLI) | payer OTHER, SELFPAY ==
[2024-11-26 15:51] LABS: Basophils Percent Auto 0.5 % (0.2-1.2); Eosinophils Percent Auto 0.7 % (0-4.4); Hematocrit 32.7 % (37.0-47.0); Hemoglobin 10.3 g/dL (12.0-15.0); Immature Granulocyte Absolute 0.03 K/mm3 (0.00-0.031); Immature Granulocyte Percent A 0.5 % (0-0.5); Lymphocytes Absolute Auto 2.32 K/mm3 (0.9-3.2); Lymphocytes Percent Auto 41.7 % (18.3-44.2); Mean Corpuscular HGB Conc 31.5 g/dl (32-36); Mean Corpuscular Hemoglobin 26.6 pg (26-34); Mean Corpuscular Volume 84.5 fl (80-100); Mean Platelet Volume 9.4 fl (7.4-10.4); Monocytes Absolute Auto 0.4 K/mm3 (0.1-0.6); Monocytes Percent Auto 7.9 % (2.6-8.5); Neutrophils Absolute Auto 2.7 K/mm3 (1.3-6.7); Neutrophils Percent Auto 48.7 % (45.5-73.1); Platelet Count Result 427 k/mm3 (150-375); Red Blood Count 3.87 M/mm3 (4.2-5.4); White Blood Count 5.6 K/mm3 (4.5-10.0)
[2024-11-26 16:42] LABS: Iron 32 ug/dL (37-170)
[2024-11-26 16:52] LABS: Percent Iron Saturation 8 % (20-50)
[2024-11-26 16:59] LABS: Alanine Aminotransferase 13 U/L (6-35); Albumin Level 4.1 g/dL (3.5-5.1); Alkaline Phosphatase 72 U/L (38-126); Anion Gap 6 mmol/L (4-12); Aspartate Amino Transferase 18 U/L (14-36); Bilirubin,Total 0.2 mg/dL (0.2-1.3); Blood Urea Nitrogen 11 mg/dL (7-17); Calcium 8.5 mg/dL (8.4-10.2); Carbon Dioxide 32 mmol/L (22-30); Chloride 104 mmol/L (98-107); Estimated Glomerular Filt Rate > 60; Glucose 86 mg/dL (65-110); Potassium 3.4 mmol/L (3.4-5.0); Sodium 142 mmol/L (137-145)
[2024-11-26 17:19] LABS: Ferritin 5.12 ng/mL (6.24-137)
[2024-11-26 17:59] LABS: Folic Acid 9.8 ng/mL (2.76->20)
--- OUTSIDE RECORDS SUMMARY | 2024-11-26 18:16 | XMS_ITS | Encounter Summary ---
Author Organization [facility] Address [facility] [place] [address] Care Team Providers Care College President Name Role Phone Andrew Barron DO Primary Care Provider + Encounter Details Date Type Department Care Team (Late st Contact Info) Description 01/16/2024 Archive Systemst Message Enc [facility] Family & Internal Medicine [facility] [address] [place] [address] Andrew Barron DO [address] [place] [address] Scan Referral Request Social History Tobacco Use Types Packs/Day Years Used Date Smoking Tobacco: Never Passive Smoke Exposure: Never Smokeless Tobacco: Never Alcohol Use Standard Drinks/Week Comments No 0 (1 standard drink = 0.6 oz pur e alcohol) AUDIT-C Answer Date Recorded Frequency of Alcohol Consumption Never 08/23/2019 Average Number of Drinks Not on file 019 Frequency of Binge Drinking Not on file 01/2019 PHQ-2 Answer Date Recorded Patient Health Questionnaire-2 Score 0 10/25/2023 Comments No Sex and Gender Information Value Date Recorded Sex Assigned at Female 10/02/2024 8:54 AM APPLICATION DESIGNER Legal Sex Female 3:52 PM CDT Gender Identity Female 10/02/2024 8:54 AM APPLICATION DESIGNER Sexual Orientation Not on file 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 Do not recommend waiting until next week for evaluation; if there is concern for a blood clot, this needs to be evaluated SARAH. documented in this encounter Plan of Treatment Upcoming Encounters Date Type Department Care Team (Late st Contact Info) Description 12/31/2024 8:40 AM CDT Office Visit [facility] Family & Internal Medicine - [address] [id number] Andrew Barron DO [facility] [place] [address] documented as of this encounter Visit Diagnoses Not on filedocumented in this encounter Additional Health Concerns Assessment Noted Time PHQ-9 Depression Total Score: 0 10/04/19 20 11:02 AM APPLICATION DESIGNER documented as of this encounter Care Teams College President Relationship Specialty Start Date End Date Andrew Barron DO [address] [place] [id number] PCP - General FAMILY PRACTICE 08/23/19 documented as of this encounter
--- OUTSIDE RECORDS SUMMARY | 2024-11-26 18:16 | XMS_ITS | Clinical Summary ---
Author Organization [facility] Address [address] [place] [address] Phone Care Team Providers Care Injector Assembler Name Role Phone Katt Rios MD Primary Care Provider [phone] Active Problems Problem Noted Date Diagnosed Date Morbid obesity 08/09/2018 Social History Tobacco Use Types Packs/Day Years Used Date Smoking Tobacco: Never Assessed Comments Unknown Sex and Gender Information Value Date Recorded Sex Assigned at Not on file Legal Sex Female 4:45 PM [employer] Gender Identity Not on file Sexual Orientation Not on file Plan of Treatment Health Maintenance Due Date Last Done Comments Hepatitis C Virus (HCV) Screening 1990 TdaP Immunization 1990 Hepatitis B Immunization (1 of 3 - 19+ 3-dose series) 2009 Pap Smear 11/20/2011 Cervical Cancer Screening (CCS) 2020 HPV/Cotest 2020 Influenza Immunization (#1) 2024 SARS-COV-2 Immunization ( season) 2024 Respiratory Syncytial Virus (RSV) Immunization (Adult) (1 - 1-dose 75+ series) 2065 Meningococcal Immunization (ACWY) Aged Out No longer eligible based on patient's age to complete this topic Pneumococcal Immunization Combined Aged Out No longer eligible based on patient's age to complete this topic Rotavirus Immunization Aged Out No lo nger eligible based on patient's age to complete this topic Insurance [facility] Care Teams Injector Assembler Relationship Specialty Start Date End Date Katt Rios MD PCP - General Obstetrics & Gynecology 08/04/18
--- OUTSIDE RECORDS SUMMARY | 2024-11-26 18:16 | XMS_ITS | Patient Health Record ---
Author Organization [facility] Address [address] [place] [address] Care Team Providers Care General Internal Medicine Physician Name Role Phone Chrissy Finney Unavailable [phone] Migration, Provider Unavailable Unavailable Allergies No Known Allergies Reason For Referral No Information Medications Medication SIG (Take, Route, Frequency, Duration) Notes Start Date End Date Status Ferrous Sulfate 325 (65 Fe) MG Oral 11/28/2023 Not-Taking buPROPion HCl ER (XL) 150 MG 1 tablet in the morning x 30 days then stop Oral Once a day for 30 days discontinue 300mg 11/28/2023 Not-Taking Naproxen 500 MG Oral 11/28/2023 Act humberto Social History Tobacco Use: Social History Observation Description Date Details (start date - stop date) Never Smoker NA - NA Sex Assigned At : Social History Observation Description Sex Assigned At Female Tobacco Control (Standard) Question Answer Notes Tobacco use: Nonsmoker AUDIT-C (Standard) Question Answer Notes Did you have a drink containing alcohol in the p ast year? No Interpretation Positive Section Notes: Social History Substance Use Do you or have you ever smoked tobacco?: Never smoker How much tobacco do you smoke?: None Do you or have you ever used e-cigarettes or vape?: Never used electronic cigarettes What was the date of your most recent tobacco screening?: 11/28/2023 Has tobacco cessation counseling been provided?: No What is your level of alcohol consumption?: None How many years have you consumed alcohol?: 10 Do you use any illicit or recreational drugs?: No Which illicit or recreational drugs have you used?: Na Have you used IV drugs?: No What is your level of caffeine consumption?: None Education and Occupation What is the highest grade or level of school you have completed or the highest degree you have received?: Associate degree: occupational, technical, or vocational program Are you currently employed?: Yes Who is your employer?: [employer] What is your relationship status?: Are you sexually active?: Yes Do you use protection during sex?: No How many children do you have?: 3 Home and Environment Are there any guns present in your home?: Yes Lifestyle Do you feel stressed (tense, restless, nervous, or anxious, or unable to sleep at night)?: To some extent Advance Directive Do you have an advance directive?: No Do you have a medical power of supervisor sulfuric acid plant?: No Gender Identity and LGBTQ Identity Assigned sex at : Female Social History Substance Use Do you or have you ever smoked tobacco?: Never smoker How much tobacco do you smoke?: None Do you or have you ever used e-cigarettes or vape?: Never used electronic cigarettes What was the date of your most recent tobacco screening?: 11/28/2023 Has tobacco cessation counseling been provided?: No What is your level of alcohol consumption?: None How many years have you consumed alcohol?: 10 Do you use any illicit or recreational drugs?: No Which illicit or recreational drugs have you used?: Na Have you used IV drugs?: No What is your level of caffeine consumption?: None Education and Occupation What is the highest grade or level of school you have completed or the highest degree you have received?: Associate degree: occupational, technical, or vocational program Are you currently employed?: Yes Who is your employer?: [employer] Marriage and Sexuality What is your relationship status?: Are you sexually active?: Yes Do you use protection during sex?: No How many children do you have?: 3 Home and Environment Are there any guns present in your home?: Yes Lifestyle Do you feel stressed (tense, restless, nervous, or anxious, or unable to sleep at night)?: To some extent Advance Directive Do you have an advance directive?: No Do you have a medical power of supervisor sulfuric acid plant?: No Gender Identity and LGBTQ Identity Assigned sex at : Female Social History Substance Use Do you or have you ever smoked tobacco?: Never smoker How much tobacco do you smoke?: None Do you or have you ever used e-cigarettes or vape?: Never used electronic cigarettes What was the date of your most recent tobacco screening?: 11/28/2023 Has tobacco cessation counseling been provided?: No What is your level of alcohol consumption?: None How many years have you consumed alcohol?: 10 Do you use any illicit or recreational drugs?: No Which illicit or recreational drugs have you used?: Na Have you used IV drugs?: No What is your level of caffeine consumption?: None Education and Occupation What is the highest grade or level of school you have completed or the highest degree you have received?: Associate degree: occupational, technical, or vocational program Are you currently employed?: Yes Who is your employer?: [employer] ? [employer] Marriage and Sexuality What is your relationship status?: Are you sexually active?: Yes Do you use protection during sex?: No How many children do you have?: 3 Home and Environment Are there any guns present in your home?: Yes Lifestyle Do you feel stressed (tense, restless, nervous, or anxious, or unable to sleep at night)?: To some extent Advance Directive Do you have an advance directive?: No Do you have a medical power of supervisor sulfuric acid plant?: No Gender Identity and LGBTQ Identity Assigned sex at : Female Problems Problem Type SNOMED Code ICD Code Onset Dates Problem Status W/U Status Risk Notes Problem Adjustment disorder with anxiety (51188120) Adjustment disorder with anxiety (F43.22) 11/28/2023 Active confirmed Problem Panic disorder (589564801) Panic attacks (F41.0) Active confirmed Vital Signs Heart Rate 75 /min 05/28/2024 Blood pressure diastolic 75 mm Hg 05/28/2024 Height-cm 162.56 cm 05/28/2024 Weight-kg 113.4 kg 05/28/2024 Height 64.00 in 05/28/2024 Blood pressure systolic 112 mm Hg 05/28/2024 Weight 250 lbs 05/28/2024 BMI 42.91 kg/m2 05/28/2024 Encounters Encounter Location Date Provider Diagnosis [facility] [employer] [facility] [address] [address] 11/28/2023 Chrissy Finney Panic disorder [episodic paroxysmal anxiety] without agoraphobia F41.0 and Adjustment disorder with anxiety F43.22 [facility] [address] [facility] [address] [place] [address] 02/27/2024 Chrissy Woloszynek Panic attacks F41.0 and Adjustment disorder with anxiety F43.22 [facility] [address] [facility] [address] [place] [address] 03/26/2024 Chrissy Woloszynek Panic attacks F41.0 and Adjustment disorder with anxiety F43.22 [facility] [address] [facility] [address] [place] [address] 05/28/2024 Chrissy Woloszynek Panic attacks F41.0 and Adjustment disorder with anxiety F43.22 [facility] [address] [address] 12/06/2023 Provider Migration [place] [address] [address] 02/04/2024 Provider Migration [facility] [address] [address] 02/05/2024 Provider Migration [place] [address] [address] 03/09/2024 Chrissy Woloszynek Assessments Encounter Date Diagnosis (ICD Code) Assessment Notes Treatment Notes Treatment Clinical Notes Section Notes 02/27/2024 Panic attacks (ICD-10 - F41.0) tolerated decrease SSRI, she would like to try to taper off completely and see if tolerated, review possible discontinuation effects, or exacerbation of sx, monitor mood, anxiety. decrease sertraline to 1/2 tab daily x 1 wk, then stop (has adequate supply at home-do not need to send script) has not continued therapy as has not felt it was needed f/u in 4-6 wks, earlier if concerns hx Aug 2022 gastric sleeve 03/26/2024 Panic attacks (ICD-10 - F41.0) tolerated taper off SSRI, no concerns is intersted in tapering off wellbutrin as well, PCP has been prescribing that, she would like me to take over and taper as well. review possible r/b, exacerbation of sx. will decrease for 1 month and then stop, but if issues/sx come in earlier to decide if stay on longer or increase dose f/u in 2 months, earlier if concerns has not continued therapy f/u in 4-6 wks, earlier if concerns hx Aug 2022 gastric sleeve 03/26/2024 Adjustment disorder with anxiety (ICD-10 - F43.22) taper wellbutrin if sx resume consider change dx cont therapy prn decrease wellbutrin XL to 150mg x 1 month, if doing well, then stop (if sx notify office) 05/28/2024 Panic attacks (ICD-10 - F41.0) tolerated stopping NDRI, no concerns discuss future, if symptoms exacerabate, when to come back etc f/u if needed hx Aug 2022 gastric sleeve 11/28/2023 Adjustment disorder with anxiety (ICD-10 - F43.22) 11/28/2023 Panic disorder [episodic paroxysmal anxiety] without agoraphobia (ICD-10 - F41.0) 02/27/2024 Adjustment disorder with anxiety (ICD-10 - F43.22) improved, likely resolved, but see how tolerates stopping SSRI if sx resume consider change dx cont therapy prncont wellbutrin XL 300mg per PCP 05/28/2024 Adjustment disorder with anxiety (ICD-10 - F43.22) resolved Plan Of Treatment No Information Insurance Providers Payer Name Payer Address Payer Phone Subscriber Number Group Number Insured Name Patient Relationship to Insured Coverage Start Date Coverage End Date [employer] [address] [place] [address] [id number] STEFAN BILLS Spouse - patient is the spouse of the insured Medical (General) History Medical History History ICD Code Problems: Adjustment disorder with anxio us mood Obesity Panic attack , Surgical History Surgery Date(Month/Year) section (17118717) x3 Extraction of wisdom tooth (42699871) Cosmetic surgery liposuction 04/02/2020 Laparoscopic sleeve gastrectomy (3095421 ) 08/19/2022
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
--- OUTSIDE RECORDS SUMMARY | 2024-11-26 18:16 | XMS_ITS | Patient Health Summary ---
Author Organization [facility] Address [address] [place] [address] Care Team Providers Care Production Maintenance Technician Name Role Phone Unavailable Primary Care Provider Unavailabl e Note from [facility],non-owned Affiliates and Associated Physician Practices is amultiple site organization consisting of ambulatory clinics and hospital sitesin [place], [place], [place] and [place]. This disclosure is being madepursuant to the Care Everywhere program and may not contain all information available regarding this patient. Last updated 18.[facility] Allergies No known active allergies Medications Be aware that medications may not be up to date on this document. Always verify current medications with the patient. No known medications Social History Tobacco Use Types Packs/Day Years Used Date Smoking Tobacco: Never Assessed Sex and Gender Information Value Date Recorded Sex Assigned at Not on file Gender Identity Not on file Sexual Orientation Not on file Last Filed Vital Signs Vital Sign Reading Time Taken Comments Blood Pressure 136/84 06/09/2018 10:05 AM CDT Pulse 77 06/09/2018 10:05 AM CDT Temperature - - Respiratory Rate - - Oxygen Saturation - - Inhaled Oxygen Concentration - - Weight 111.6 kg (246 lb) 06/21/2018 8:23 AM CDT Height 163.2 cm (5' 4.25 ) 06/21/2018 8:23 AM CD T Body Mass Index 41.9 06/21/2018 8:23 AM CDT Procedures * FL FLUORO UPPER GI TRACT + KUB(Performed 06/29/2018) Performed for Morbid obesity (HCC), Preop examination Results * FL FLUORO UPPER GI TRACT + KUB (06/29/2018 9:25 AM CDT) Anatomical Region Laterality Modality Abdomen Radiographic Diana ging 06/29/2018 11:2 6 AM CDT Impressions 06/29/2018 11:27 AM CDT Gastroesophageal reflux Reading Radiologist: Elton Baker MD on 06/29/2018 at 11:27 AM Narrative 06/29/2018 11:27 AM CDT Upper GI Indication: Morbid obesity, gastroesophageal reflux, preoperative assessment FINDINGS: The esophagus is normal in contour and caliber. There is no gastric mass, obstruction or ulceration. Gastric mucosa is unremarkable. There is no hiatal hernia. There is no gastric outlet obstruction. There is no gastric ulceration. Duodenal bulb and C-loop are normal. There was reflux to the midthoracic level with the patient in the supine position. Total fluoroscopy time: 0.3 minutes, 32 spot fluoroscopic images were obtained Procedure Note Elton Baker MD - 06/29/2018 Upper GI Indication: Morbid obesity, gastroesophageal reflux, preoperative assessment FINDINGS: The esophagus is normal in contour and caliber. There is no gastric mass, obstruction or ulceration. Gastric mucosa is unremarkable. There is no hiatal hernia. There is no gastric outlet obstruction. There is no gastric ulceration. Duodenal bulb and C-loop are normal. There was reflux to the midthoracic level with the patient in the supine position. Total fluoroscopy time: 0.3 minutes, 32 spot fluoroscopic images were obtained IMPRESSION Gastroesophageal reflux Reading Radiologist: Elton Baker MD on 06/29/2018 at 11:27 AM Rufus Askew MD FLUOROSCOPY ORDERABL ES
--- OUTSIDE RECORDS SUMMARY | 2024-11-26 18:17 | XMS_ITS | Encounter Summary ---
Author Organization [facility] Address [address] [place] [address] Care Team Providers Care Filteration Operator Name Role Phone Andrew Barron DO Primary Care Provider + Reason for Visit * Reason Comments Establish Care Encounter Details Date Type Department Care Team (Late st Contact Info) Description 11/26/2024 3:00 PM CDT Office Visit [facility] Oncology and Hematology - [place] [address] [facility] [address] [place] [address] Fredrick Carroll MD [address] [facility] [address] [place] [address] Chronic anemia (Primary Dx) Social History Tobacco Use Types Packs/Day Years Used Date Smoking Tobacco: Never Smokeless Tobacco: Never Alcohol Use Standard Drinks/Week Comments Not Currently 0 (1 standard drink = 0.6 oz pur e alcohol) Comments No Sex and Gender Information Value Date Recorded Sex Assigned at Not on file 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 Gender Identity Not on file Sexual Orientation Not on file documented as of this encounter Last Filed Vital Signs Vital Sign Reading Time Taken Comments Blood Pressure 106/70 11/26/2024 3:07 PM CDT Pulse 68 11/26/2024 3:07 PM CDT Temperature 35.5 C (95.9 F) 11/26/2024 3:07 PM CDT Respiratory Rate 17 11/26/2024 3:07 PM CDT Oxygen Saturation 98% 11/26/2024 3:0 7 PM CDT Inhaled Oxygen Concentration - - Weight 78.3 kg (172 lb 9.6 oz) 11/26/2024 3:07 PM CDT Patient stated that this is the correct weight Height 162.6 cm (5' 4 ) 11/26/2024 3:07 PM CDT Body Mass Index 29.63 11/26/2024 3:07 PM CDT documented in this encounter Progress Notes * Fredrick Carroll MD - 11/26/2024 3:32 PM CDT Hematology-oncology consult Note Requesting Physician Andrew Barron, DO Primary Care Physician Andrew Barron, DO Problem list There is no problem list on file for this patient. Previous TREATMENT ? Measurable Disease ? Reason for Visit Elvia Guevara is a 34 y.o. female who was referred for consultation for iron deficiency anemia. History of present illness This is a 34-year-old pleasant -Pak[place] female who has been in good health except history of gastric sleeve surgery in 2021 with 100 pound weight loss referred to me for anemia. According to patient she has been more anemic since the delivery of her last child in 2008. She has been complaining of tiredness and fatigue. Her menstrual bleeding last only 3 days and is not heavy. She denies any bleeding including melena hematochezia. Denies any hematuria. She denies being a vegetarian. She is taking oral iron 325 mg twice a day for the last 3 months. She has not received any iron infusionin the past. Denies any other complaints. Past Medical History Morbid obesity status post gastric sleeve surgery in 2021. Surgical History Past Surgical History: Procedure Laterality Date HX SECTION HX CLOSED REDUCTION FOREARM FRACTURE Right HX LIPOSUCTION WI LAPS GSTRC RSTRICTIV PX LONGITUDINAL GASTRECTOMY N/A 08/23/2022 LAPAROSCOPIC VERTICAL SLEEVE GASTRECTOMY AND INSERTION OF TUNNELED ABDOMINAL WALL CATHETERS performed by Pollo Groves MD at [facility] OR Medications No current outpatient medications on file. No current facility-administered medications for this visit. Allergies No Known Allergies Immunizations: There is no immunization history on file for this patient. Family History Family History Problem Relation Name Age of Onset No Known Problems Father Diabetes Mother Cervical Cancer Sister No Known Problems Sister No Known Problems Sister No Known Problems Sister No Known Problems Brother No Known Problems Child No Known Problems Child No Known Problems Child Social History Social History Tobacco Use Smoking status: Never Smokeless tobacco: Never Substance Use Topics Alcohol use: Not Currently Review of Systems Constitutional: Patient did not mention fever; no night sweats; no anorexia; 100 pound weight loss since gastric sleeve surgery in 2021, complain of tiredness and fatigue NEENT: Patient did not mention headache; no change in vision; no change in hearing; no sore throat;no dysphagia Respiratory: Patient did not mention shortness of breath; no pleuritic chest pain; no cough; no hemoptysis Cardiac: Patient did not mention cardiac-like chest pain; no palpitations; no orthopnea; no PND; noDOE Breasts: Patient did not mention tenderness; no masses GI: Patient did not mention abdominal pain; no nausea; no vomiting; no diarrhea; no hematochezia; no melena : Patient did not mention dysuria; no frequency; no hesitancy; no hematuria DELINQUENCY PREVENTION OFFICER: Musculosketetal: Patient did not mention bone pain; no arthralgia; no joint swelling; no myalgia; Skin: Patient did not mention pruritis; no rash; no petechiae; no ecchymoses Endocrine: Patient did not mention polydipsia; no polyuria; no unusual weight gain Neuro: Patient did not mention headache; no change in vision; no sensory changes; no muscle weakness; no confusion; no seizures Psych: Patient did not mention anxiety; no depression; Physical Exam Vitals: As per nursing note Constitutional: Well developed, well nourished, no acute distress, non-toxic appearance Teeth and gum. No signs of infection or swelling. Eyes: PERRL, conjunctiva normal HEENT: Atraumatic, external ears normal, nose normal, oropharynx moist, no pharyngeal exudates. no sinus tenderness Neck- normal range of motion, no tenderness, supple Respiratory: No respiratory distress, normal breath sounds, no rales, no wheezing Cardiovascular: Normal rate, normal rhythm, no murmurs, no gallops, no rubs GI: Soft, nondistended, normal bowel sounds, nontender, no splenomegaly, no hepatomegaly, no mass, no rebound, no guarding : No costovertebral angle tenderness Musculoskeletal: No edema, no tenderness, no deformities. Back- no tenderness Integument: Well hydrated, no rash, Digits and nails inspection normal Lymphatic: No lymphadenopathy noted Neurologic: Alert & oriented x 3, CN 2-12 normal, normal motor function, normal sensory function, no focal deficits noted Psychiatric: Speech and behavior appropriate ? labs No results found for this or any previous visit (from the past 24 hours). Lab from September 25, 2024 showed iron 21 saturation 5% ferritin 5 hemoglobin 9.9 Pathology ? Imaging & Other Studies Performance Status? Assessment / Plan: ? Iron deficiency anemia. Patient is a 34-year-old obese -Pakistani female with history of gastric sleeve surgery in 2021. She has lost 100 pound weight since her surgery. She is otherwise in good health. She denies any heavy menstrual bleeding. Her menses last about 3 days. According to patient she has been more anemic since the delivery of her last child in 2008. Patient is currently takingoral iron 325 mg twice a day for last few months duration. She is quite symptomatic with tiredness and fatigue. I informed her that likelihood of her iron deficiency is malabsorption from the gastricsleeve surgery. I will order the workup that will include CBC with differential, CMP, iron profile and vitamin B12 level. Based on the iron studies I will start her on iron infusion. I will discuss the test result with her in 1 week. In the meantime she will continue oral iron 325 mg twice a day. Becky answered all the questions to patient satisfaction. Morbid obesity status post gastric sleeve surgery in 2021. She has lost 100 pounds weight and continues to lose some more weight. Thank you very much for allowing me to participate in Elvia Guevara's evaluation and management.Please feel free to contact if I can be of any further assistance in your patient???s care requiring hematology or oncology evaluation. Sincerely, ? ? Fredrick Carroll M.D. cell TOBACCO COUNSELING She is not a tobacco/nicotine user. Fredrick Carroll MD ,11/26/2024 3:32 PM ? Total time spent 60 minutes, two third of the total time spent counseling patient [id number]. CC:? documented in this encounter Plan of Treatment Upcoming Encounters Date Type Department Care Team (Late st Contact Info) Description 12/03/2024 4:00 PM CDT Telephone Check Up [facility] Oncology and Hematology - [place] [address] [facility] [address] [place] [id number] Fredrick Carroll MD [address] [facility] [address] [place] [address] Scheduled Orders Name Type Priority Associated Diagnoses Orde r Schedule CBC WITH DIFFERENTIAL Lab Stat Chronic anemia Expected: 11/26/2024, Expires: 11/26/2025 COMPREHENSIVE METABOLIC PANEL Lab Stat Chronic anemia Expected: 11/26/2024, Expires: 11/26/2025 FERRITIN Lab Routine Chronic anemia Expected: 11/26/2024, Expires: 11/26/2025 IRON, TIBC, AND PERCENT SATURATION Lab Routine Chronic anemia Expected: 11/26/2024, Expires: 11/26/2025 VITAMIN B12 AND FOLATE Lab Routine Chronic anemia Expected: 11/26/2024, Expires: 11/26/2025 documented as of this encounter Visit Diagnoses Diagnosis Chronic anemia- Primary Anemia, unspecified documented in this encounter Care Teams Filteration Operator Relationship Specialty Start Date End Date Andrew Barron DO [address] [place] [id number] PCP - General Family Practice 08/16/22 documented as of this encounter
--- OUTSIDE RECORDS SUMMARY | 2024-11-26 18:17 | XMS_ITS | Clinical Summary ---
Author Organization [facility] Address [address] [facility] [place] [address] Care Team Providers Care Licensed Real Estate Broker Name Role Phone Unavailable Primary Care Provider Unavailabl e Source Comments [facility],non-owned Affiliates and Associated Physician Practices is amultiple site organization consisting of ambulatory clinics and hospital sitesin [place], [place], [place] and [place]. This disclosure is being madepursuant to the Care Everywhere program and may not contain all information available regarding this patient. Last updated 18.[facility] Allergies No known active allergies Medications Be [...] Mass Index 41.9 06/21/2018 8:23 AM CDT Plan of Treatment Health Maintenance Due Date Last Done Comments PAP SMEAR 1990 HIV SCREENING 2005 HEPATITIS C SCREENING 11/14/2008 DTAP/TDAP/TD VACCINES (1 - Tdap) 2009 HEPATITIS B VACCINE (1 of 3 - 19+ 3-dose series) 2009 COVID-19 VACCINE (1 - 2024-2 5 season) 2024 INFLUENZA VACCINE (#1) 2024 DEPRESSION SCREENING 09/19/2024 ZOSTER VACCINE (1 of 2) 2040 HIB VACCINE Aged Out No longer eligi ble based on patient's age to complete this topic HPV VACCINE Aged Out No longer eligi ble based on patient's age to complete this topic MENINGOCOCCAL (Group B) VACCINE Aged Out No longer eligible based on patient's age to complete this topic MENINGOCOCCAL VACCINE Aged Out No ana cristina brittaney eligible based on patient's age to complete this topic PNEUMOCOCCAL VACCINE Aged Out No long er eligible based on patient's age to complete this topic
--- OUTSIDE RECORDS SUMMARY | 2024-11-26 18:17 | XMS_ITS ---
Author Organization [facility] [employer] Address [address] [place] [address] Care Team Providers Care Gynecological Assistant Name Role Phone Chrissy Finney Unavailable [phone] Allergies No Known Allergies REASON FOR VISIT follow up medication management Medications Medication SIG (Take, Route, Frequency, Duration) Notes Start Date End Date Status Naproxen 500 MG Oral 11/28/2023 Act humberto buPROPion HCl ER (XL) 150 MG 1 tablet in the morning x 30 days then stop Oral Once a day for 30 days discontinue 300mg 11/28/2023 Active Ferrous Sulfate 325 (65 Fe) MG Oral 11/28/2023 Not-Taking Social History Tobacco Use: Social History Observation [...] currently employed?: Yes Who is your employer?: [employer] Marriage and Sexuality What is your relationship [...] Do you have a medical power of attorney general?: No Gender Identity and LGBTQ Identity Assigned sex at : Female Vital Signs Blood pressure systolic 105 mm Hg 03/26/20 24 Blood pressure diastolic 68 mm Hg 024 Heart Rate 80 /min 03/26/2024 Height 64.00 in 03/26/2024 Weight 192 lbs 03/26/2024 BMI 32.95 kg/m2 03/26/2024 Height-cm 162.56 cm 03/26/2024 Weight-kg 87.09 kg 03/26/2024 Encounters Encounter Location Date Provider Diagnosis [facility] [place] [address] [address] 03/26/2024 Chrissy Reg Panic attacks F41.0 and Adjustment disorder with anxiety F43.22 Assessments Encounter Date Diagnosis (ICD Code) Assessment Notes Treatment Notes Treatment Clinical Notes Section Notes 03/26/2024 Panic attacks (ICD-10 - F41.0) tolerated [...] well, then stop (if sx notify office) Plan Of Treatment Medication Medication Name Sig Start Date Stop Date Notes buPROPion HCl ER (XL) 150 MG 1 tablet in the morning x 30 days then stop Oral Once a day for 30 days 11/28/2023 discontinue 300mg Treatment Notes Assessment Notes Panic attacks tolerated taper off SSRI, no concerns is [...] f/u in 4-6 wks, earlier if concerns Adjustment disorder with anxiety taper wellbutrin if sx resume consider change dx cont therapy prn decrease wellbutrin XL to 150mg x 1 month, if doing well, then stop (if sx notify office) Next Appt Details Follow Up: 2 Months, Reason: Progress Notes * ERIN BILLS MDOB:[birth year] (33 yo F)Acc No.[id number]:03/26/2024 Patient: Lauren TEOFILOCHASERIN Provider: CHAD DAVID :1990 A ge:33 Y S ex:Female Date:03/26/2024 [facility] [address] [id number] Subjective: * Chief Complaints: * 1 . Follow up medication management. * HPI: D epression screening: PHQ-9 L ittle interest or pleasure in doing things N ot at all, F eeling down, depressed, or hopeless N ot at all, T rouble falling or staying asleep, or sleeping too much N ot at all, F eeling tired or having little energy N ot at all, P oor appetite or overeating N ot at all, F eeling bad about yourself or that you are a failure, or have let yourself or your family down N ot at all, T rouble concentrating on things, such as reading the newspaper or watching television N ot at all, M oving or speaking so slowly that other people could have noticed; or the opposite, being so fidgety or restless that you have been moving around a lot more than usual N ot at all, T houghts that you would be better off or of hurting yourself in some way N ot at all. D epression Screening: KAYCE-7 (2018 Edition) F eeling nervous, anxious, or on edge?Not at all, N ot being able to stop or control worrying N ot at all, W orrying too much about different things N ot at all, T rouble relaxing N ot at all, B eing so restless that it is hard to sit still N ot at all, B ecoming easily annoyed or irritable N ot at all, F eeling afraid as if something awful might happen N ot at all. [place]-Suicide Severity Rating Scale: Suicide Risk (CSRS-screener) i n the past one month Have you wished you were or wished you could go to sleep and not wake up? N o, i n the past one month Have you actually had any thoughts of killing yourself? N o, H ave you ever done anything, started to do anything, or prepared to do anything to end your life? N o. H istory of Presenting Problem: 33 y/o female, , 3 kids, works for [employer], here to f/u for adjustment disorder, panic attacks; context attack at work in November 2022. presents with 2 children tapered off sertraline, had a headache for 1-2 days, but not since, no other issues. no recurrence of sx. I feel good. Denies depression, SI. anxiety manageable. No panic attacks. Sleeping good. Denies concerns. not in t herapy medical: denies changes. G eneral Follow Up: Ongoing notes: SUBSTANCE USE HX: negative Denied hx of psychiatric hospitalizations, suicide attempts or self-injury. Adjustment Disorder, hx: Would not consider self a worrier. Does not feel has had episodes of notable anxiety in past. Worry about work, and only when there. it can be overwhelming. Not worrying about it at home, not worrying about other things. Though now feel like when talking to one patient, stil thinking about the last one, distracted. Not necessarily worrying. Denies being irritable snappy. Afraid something will happen at work, but not at home. Trouble relaxing at work. Panic attacks: recently after incident, if at site. Don't have at home or elsewhere. see past notes for discussion of incident at work oct 2022 Psychotherapy: saw J Luis here a few times Trauma/abuse hx: denied childhood. Adult no, other than work event/attack in November 2022. * ROS: P sychiatric: Patient denies a uditory / visual hallucinations, delusions, depressed mood, difficulty sleeping, substance abuse, suicidal thoughts, jose, psychosis, panic attacks. P atient complains of a nxiety-manageable. * Medical History: P roblems: Adjustment disorder with anxious mood, Obesity, Panic attack, ,. * Surgical History: C esarean section (79070059) x3 , Extraction of wisdom tooth ([id number]) , Cosmetic surgery liposuction 04/02/2020, Laparoscopic sleeve gastrectomy ([id number]) 08/19/2022. * Hospitalization/Major Diagno stic Procedure: D enies Past Hospitalization. * Family History: F ather: No current problems or disability . M other: No current problems or disability .? * Social History: T obacco Use: T obacco Control (Standard) T obacco use: N onsmoker. M igrated Social History: M igrated Social History: Alcohol Intake: None 02/18/2023,Tobacco Years: Never smoker 02/18/2023. D rug/Alcohol: A GEORGE-C (Standard) D id you have a drink containing alcohol in the past year? N o,?Interpretation P ositive. S ocial History Substance Use Do you or have [...] currently employed?: Yes Who is your employer?: [employer] Marriage and Sexuality What is your relationship [...] Do you have a medical power of attorney general?: No Gender Identity and LGBTQ Identity Assigned sex at : Female. * Medications: T aking Naproxen 500 MG Tablet Oral , Taking buPROPion HCl ER (XL) 300 MG Tablet Extended Release 24 Hour Oral , Not-Taking Ferrous Sulfate 325 (65 Fe) MG Tablet Oral , Discontinued Sertraline HCl 50 MG Tablet Oral , Discontinued Sertraline HCl 100 MG Tablet Oral , Medication List reviewed and reconciled with the patient * Allergies: N .K.D.A. Objective: * Vitals: B P:105/68mm Hg, HR:80/min, Wt:192lbs, Wt-k.09 kg, Ht: 64.00 in, Ht-cm: 162.56 cm, BMI:32.95Index, Body Surface Area: 1.98. * Examination: P sychiatry: Appearance: C onstitutional: Appearance alert, well-groomed, clean, appears well rested. No acute physical distress. Behavior: eye contact good, cooperative, pleasant. Affect / mood: a ppropriate, full range. Attention: g ood. Attitude: c ooperative. Suicidal ideation: n one. Memory status: n o impairment noted. Degree of awareness of surroundings: w ithin normal limits.? Delusions: n o. Hallucinations: n o. Insight: g ood. Intellectual functioning: n o impairment noted. Judgement: g ood. Orientation: a wake, alert and oriented x 3. Perceptual disorders: n o perceptual disorder noted. Psychomotor activity: w ithin normal range. Speech / language: a ppropriate pitch/modulation, clear and coherent, normal rate, volume, and articulation (RVR), proper grammar used. Thought content: a ppropriate. Thought process: i ntact. Assessment: * Assessment: 1. P anic attacks - F41.0 (Primary) 2 . A djustment disorder with anxiety - F43.22 Plan: * Treatment: 2. A djustment disorder with anxiety Refill buPROPion HCl ER (XL) Tablet Extended Release 24 Hour, 150 MG, 1 tablet in the morning x 30 days then stop, Oral, Once a day, 30 days, 30, Refills 0, Notes to Pharmacist: discontinue 300mg.? Notes: taper wellbutrin if sx resume consider change dx cont therapy prn decrease wellbutrin XL to 150mg x 1 month, if doing well, then stop (if sx notify office) * Follow Up: 2 Months * Billing Information: * Visit Code: 19335 OFFICE OUTPATIENT VISIT 15 MINUTES EXPANDED HISTORY AND EXAM/LOW MEDICAL DECISION MAKING. * Procedure Codes: * Sign off status: Completed true * Provider: CHAD DAVID Date: 0 03/26/2024 Generated for Jackie cobos/Kimberlee/Kyle on: 0 11/26/2024 06:16 PM CDT History and Physical Notes * HPI (History of Present Illness) Category Sub-Category Detail Notes Category Not es History of Presenting Problem 33 y/o female, , 3 kids, works for [employer], here to f/u for adjustment disorder, panic attacks; context attack at work in November 2022. presents with 2 children tapered off sertraline, had a headache for 1-2 days, but not since, no other issues. no recurrence of sx. I feel good. Denies depression, SI. anxiety manageable. No panic attacks. Sleeping good. Denies concerns. not in therapy medical: denies changes Depression screening PHQ-9 Little inte rest or pleasure in doing things: Not at all Feeling down, depressed, or hopeless: No t at all Trouble falling or staying asleep, or sl eeping too much: Not at all Feeling tired or having little energy: N ot at all Poor appetite or overeating: Not at all Feeling bad about yourself o r that you are a failure, or have let yourself or your family down: Not at all Trouble concentrating on thi ngs, such as reading the newspaper or watching television: Not at all Moving or speaking so slowly that other people could have noticed; or the opposite, being so fidgety or restless that you have been moving around a lot more than usual: Not at all Thoughts that you would be b andrew off or of hurting yourself in some way: Not at all Depression Screening KAYCE-7 (2018 Edition) Feelin g nervous, anxious, or on edge: Not at all Not being able to stop or control worryi ng: Not at all Worrying too much about different things : Not at all Trouble relaxing: Not at all Being so restless that it is hard to sit still: Not at all Becoming easily annoyed or irritable: No t at all Feeling afraid as if something awful chas ht happen: Not at all [place]-Suicide Severity Rating Scale Suicide Risk (CSRS-screener) in the past one month Have you wished you were or wished you could go to sleep and not wake up?: No in the past one month Have y ou actually had any thoughts of killing yourself?: No Have you ever done anything, started to do anything, or prepared to do anything to end your life?: No Examination Category Sub-Category Detail Notes Category Not es Psychiatry Appearance: Constitutional: Appearance alert, well-groomed, clean, appears well rested. No acute physical distress. Behavior: eye contact good, cooperative, pleasant Attitude: cooperative Psychomotor activity: within normal rang e Attention: good Degree of awareness of surroundings: wit hin normal limits Orientation: awake, alert and deng ented x 3 Affect / mood: appropriate, full ra nge Speech / language: appropriate pitch/mo dulation, clear and coherent, normal rate, volume, and articulation (RVR), proper grammar used Insight: good Judgement: good Thought process: intact Thought content: appropriate Perceptual disorders: no perceptual diso rder noted Suicidal ideation: none Intellectual functioning: no impairment noted Memory status: no impairment noted Delusions: no Hallucinations: no
--- OUTSIDE RECORDS SUMMARY | 2024-11-26 18:17 | XMS_ITS ---
Author Organization [facility] [employer] Address [address] [place] [address] Care Team Providers Care Roll Winder Name Role Phone Chrissy Finney Unavailable [phone] Allergies No Known Allergies REASON FOR VISIT Follow up Medications Medication SIG (Take, Route, Frequency, Duration) [...] (Standard) Question Answer Notes Tobacco use: Nonsmoker Section Notes: Social History Substance Use Do [...] currently employed?: Yes Who is your employer?: [email or web address] Marriage and Sexuality What is your relationship [...] Do you have a medical power of state's attorney?: No Gender Identity and LGBTQ Identity Assigned sex at : Female Vital Signs Blood pressure systolic 112 mm Hg 05/28/20 24 Blood pressure diastolic 75 mm Hg 024 Heart Rate 75 /min 05/28/2024 Height 64.00 in 05/28/2024 Weight 250 lbs 05/28/2024 BMI 42.91 kg/m2 05/28/2024 Height-cm 162.56 cm 05/28/2024 Weight-kg 113.4 kg 05/28/2024 Encounters Encounter Location Date Provider Diagnosis [facility] [place] [address] [address] 05/28/2024 Chrissy Finney Panic attacks F41.0 and Adjustment disorder with anxiety F43.22 Assessments Encounter Date Diagnosis (ICD Code) Assessment Notes Treatment Notes Treatment Clinical Notes Section Notes 05/28/2024 Panic attacks (ICD-10 - F41.0) tolerated stopping NDRI, no concerns discuss future, if symptoms exacerabate, when to come back etc f/u if needed hx Aug 2022 gastric sleeve 05/28/2024 Adjustment disorder with anxiety (ICD-10 - F43.22) resolved Plan Of Treatment Treatment Notes Assessment Notes Panic attacks tolerated stopping NDRI, no concerns discuss future, if symptoms exacerabate, when to come back etc f/u if needed Adjustment disorder with anxiety resolve d Next Appt Details Follow Up: prn, Reason: Progress Notes * ERIN BILLS MDOB:[birth year] (33 yo F)Acc No.[id number]:05/28/2024 Patient: ERIN DOHERTY Provider: NORA DAVIDHNP :1990 A ge:33 Y S ex:Female Date:05/28/2024 Address:[address], [id number] Subjective: * Chief Complaints: * 1 . Follow up. * HPI: D epression screening: PHQ-9 L ittle interest or pleasure in doing things N ot at all, F eeling down, depressed, or hopeless N ot at all. I ntervention D epression Screening Findings N egative, F ollow-Up for Depression M ental health care management, S uicide Risk Assessment Performed 0 05/28/2024, A dditional Evaluation for Depression?Psychiatric interview and evaluation, N iliana of the standardized tool used for adult depression screening: PHQ-2. D epression Screening: KAYCE-7 (2018 Edition) F [...] something awful might happen N ot at all, T otal KAYCE-7 Score 0 , I f you checked any problems, how difficult have they made it for you to do your work, take care of things at home, or get along with other people? N ot difficult at all, I nterpretation of Total ( 0 to 4) No Anxiety. [place]-Suicide Severity Rating Scale: Suicide Risk (CSRS-screener) i n the past one month Have you wished you were or wished you could go to sleep and not wake up? N o, i n the past one month Have you actually had any thoughts of killing yourself? N o. H istory of Presenting Problem: 33 y/o female, , 3 kids, works for [employer], here to f/u for adjustment disorder, panic attacks; context attack at work in November 2022. presents with 1 children tapered off wellbutrin, been off a month. It went good no issues. denies depression, SI. I've been fine. Anxiety is good. no panic attacks. Sleeping fine. Denies concerns. No issues at work with mood/anxiety/panic. not in t herapy medical: denies changes. [...] in November 2022. * ROS: P sychiatric: Comments S dieter HENDRICKSON for details. * Medical History: P vidhya: Adjustment disorder with anxious mood, Obesity, Panic attack, ,. * Surgical History: C esarean section ([id number]) x3 , Extraction of wisdom tooth ([id number]) , Cosmetic surgery liposuction 04/02/2020, Laparoscopic sleeve gastrectomy ([id number]) 08/19/2022. * Family History: F ather: No current problems or disability . M other: No current problems or disability .? * Social History: T obacco Use: T obacco Control (Standard) T obacco use: N onsmoker. S ocial History Substance Use Do you [...] currently employed?: Yes Who is your employer?: [employer] Marriage and Sexuality What is your relationship [...] Do you have a medical power of state's attorney?: No Gender Identity and LGBTQ Identity Assigned sex at : Female. * Medications: T aking Naproxen 500 MG Tablet Oral , Not-Taking buPROPion HCl ER (XL) 150 MG Tablet Extended Release 24 Hour 1 tablet in the morning x 30 days then stop Oral Once a day , Notes to Pharmacist: discontinue 300mg, Not-Taking Ferrous Sulfate 325 (65 Fe) MG Tablet Oral , Medication List reviewed and reconciled with the patient * Allergies: N .K.D.A. Objective: * Vitals: B P:112/75mm Hg, HR:75/min, Wt:250lbs, Wt-k.4 kg, Ht: 64.00 in, Ht-cm: 162.56 cm, BMI:42.91Index, Body Surface Area: 2.26. * Examination: P sychiatry: Appearance: C onstitutional: [...] Treatment: 2. A djustment disorder with anxiety Notes: resolved * Procedure Codes: 9 6127 BEHAV ASSMT W/SCORE & DOCD/STAND INSTRUMENT * Follow Up: p rn * Billing Information: * Visit Code: 31267 OFFICE OUTPATIENT VISIT 15 MINUTES EXPANDED HISTORY AND EXAM/LOW MEDICAL DECISION MAKING. * Procedure Codes: 87986 BEHAV ASSMT W/SCORE & DOCD/STAND INSTRUMENT. * Sign off status: Completed true * Provider: CHAD DAVID Date: 0 05/28/2024 Generated for Jackie cobos/Kimberlee/Liveitting on: 0 11/26/2024 02:43 PM CDT History and Physical Notes * HPI (History of Present Illness) Category Sub-Category Detail Notes Category Not es History of Presenting Problem 33 y/o female, , 3 kids, works for [employer], here to f/u for adjustment disorder, panic attacks; context attack at work in November 2022. presents with 1 children tapered off wellbutrin, been off a month. It went good no issues. denies depression, SI. I've been fine. Anxiety is good. no panic attacks. Sleeping fine. Denies concerns. No issues at work with mood/anxiety/panic. not in therapy medical: denies changes Depression screening PHQ-9 Little inte rest or pleasure in doing things: Not at all Feeling down, depressed, or hopeless: No t at all Intervention Depression Screening Findings: N egative Follow-Up for Depression: Mental health care management Suicide Risk Assessment Performed: 05/28 Additional Evaluation for Depression: Ps ychiatric interview and evaluation Name of the standardized tool used for a dult depression screening:: PHQ-2 Depression Screening KAYCE-7 (2018 Edition) Feelin g [...] awful chas ht happen: Not at all Total KAYCE-7 Score: 0 If you checked any problems, how difficult have they made it for you to do your work, take care of things at home, or get along with other people?: Not difficult at all Interpretation of Total: (0 to 4) No Anx iety [place]-Suicide Severity Rating Scale Suicide Risk (CSRS-screener) in the past one month Have you wished you were or wished you could go to sleep and not wake up?: No in the past one month Have y ou actually had any thoughts of killing yourself?: No Examination Category Sub-Category Detail Notes Category [...]
--- OUTSIDE RECORDS SUMMARY | 2024-11-26 18:17 | XMS_ITS ---
Author Organization [facility] [employer] Address [address] [facility] [address] [place] [address] Care Team Providers Care Mgmt Specialist Name Role Phone Chrissy Finney Unavailable [phone] REASON FOR VISIT Other Social History Sex Assigned At : Social History Observation Description Sex Assigned At Female Encounters Encounter Location Date Provider Diagnosis [facility] [employer] [facility] [address] [facility] [address] [place] [address] 03/09/2024 Chrissy Finney Plan Of Treatment No Information Progress Notes * ERIN BILLS MDOB:[birth year] (33 yo F)Acc No.[id number]:03/09/2024 Patient: ERIN DOHERTY :1990 A ge:33 Y S ex:Female Address:[address] [place], [address] * true * Date: Generated for Printi ng/Faxing/eTransmitting on: 0 11/26/2024 06:16 PM CDT
--- OUTSIDE RECORDS SUMMARY | 2024-11-26 18:17 | XMS_ITS | Encounter Summary ---
Author Organization [facility] Address [address] [place] [address] Care Team Providers Care Airport Location Manager Name Role Phone Andrew Barron DO Primary Care Provider + Encounter Details Date Type Department Care Team (Late st Contact Info) Description 11/24/2024 External Device Data [facility] ABSTRACTION Provider, Abstract NO ADDRESS ON FILE Social History Tobacco Use Types Packs/Day Years Used Date Smoking Tobacco: Never Smokeless Tobacco: Never Alcohol Use Standard Drinks/Week Comments Not Currently 0 (1 standard drink = 0.6 oz pur e alcohol) Comments No Sex and Gender Information Value Date Recorded Sex Assigned at Not on file Legal Sex 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 Gender Identity Not on file Sexual Orientation Not on file documented as of this encounter Plan of Treatment Upcoming Encounters Date Type Department Care Team (Late st Contact Info) Description 12/03/2024 4:00 PM CDT Telephone Check Up [facility] - [place] [address] [facility] [address] [place] [address] Fredrick Carroll MD [address] [facility] [address] [place] [address] documented as of this encounter Visit Diagnoses Not on filedocumented in this encounter Care Teams Airport Location Manager Relationship Specialty Start Date End Date Andrew Barron DO [address] [place] [phone] PCP - General Family Practice 08/16/22 documented as of this encounter
--- OUTSIDE RECORDS SUMMARY | 2024-11-26 18:17 | XMS_ITS | Encounter Summary ---
Author Organization [facility] Address [facility] [place] [address] Care Team Providers Care Risk And Compliance Analytics Director Name Role Phone Andrew Barron DO Primary Care Provider + Encounter Details Date Type Department Care Team (Late Contact Info) Description 11/16/2022 HeadSproutt Message Enc [facility] Family & Internal Medicine [facility] [address] [place] [address] Andrew Barron DO [address] [place] [address] Possible injury Social History Tobacco Use Types Packs/Day Years Used Date Smoking Tobacco: Never Smokeless Tobacco: Never Alcohol Use Standard Drinks/Week Comments No 0 (1 standard drink = 0.6 oz pur e alcohol) AUDIT-C Answer Date Recorded Frequency of Alcohol Consumption Never 08/23/2019 Average Number of Drinks Not on file 019 Frequency of Binge Drinking Not on file 01/2019 PHQ-2 Answer Date Recorded PHQ-2 Score - If the patient scores above 3, please move on to questions 3-9 0 08/04/2022 Comments No Sex and Gender Information Value Date Recorded Sex Assigned at Female 10/02/2024 8:54 AM MECHANIC Legal Sex Female 3:52 PM CDT Gender Identity Female 10/02/2024 8:54 AM MECHANIC Sexual Orientation Not on file 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 Not on file Not on file documented as of this encounter Plan of Treatment Upcoming Encounters Date Type Department Care Team (Late st Contact Info) Description 12/31/2024 8:40 AM CDT Office Visit [facility] Family & Internal Medicine - [place] [address] [place] [address] Andrew Barron DO [address] [place] [address] documented as of this encounter Visit Diagnoses Not on filedocumented in this encounter Additional Health Concerns Assessment Noted Time PHQ-9 Depression Total Score: 0 10/04/19 20 11:02 AM MECHANIC documented as of this encounter Care Teams Risk And Compliance Analytics Director Relationship Specialty Start Date End Date Andrew Barron DO [address] [place] [address] PCP - General FAMILY PRACTICE 08/23/19 documented as of this encounter
--- OUTSIDE RECORDS SUMMARY | 2024-11-26 18:17 | XMS_ITS | Referral Summary ---
Author Organization [facility] Address [address] [facility] [place] [address] Care Team Providers Care Orthopedic Physician Assistant Name Role Phone Unavailable Primary Care Provider Unavailabl e Source Comments [facility],non-owned Affiliates and Associated Physician Practices is amultiple site organization consisting of ambulatory clinics and hospital sitesin [place], [place], [place] and [place]. This disclosure is being madepursuant to the Care Everywhere program and may not contain all information available regarding this patient. Last updated 18.[facility] Allergies No known active allergies Medications Be [...] 06/21/2018 8:23 AM CDT Plan of Treatment Not on file
--- OUTSIDE RECORDS SUMMARY | 2024-11-26 18:17 | XMS_ITS | Clinical Summary ---
Author Organization [facility] Address [address] [place] [address] Phone Care Team Providers Care Director Of Automation Name Role Phone Andrew Barron DO Primary Care Provider + Allergies No known active allergies Medications No known medications Active Problems No known active problems Encounters Date Type Department Care Team Description 11/26/2024 3:00 PM CDT Office Visit [facility] Oncology and Hematology - Jamel Estefanía Baker [address] [address] Fredrick Carroll MD Chronic anemia (Primary Dx) 11/24/2024 External Device Data STL ABSTRACTION Provider, Abstract from Last 3 Months Family History Medical History Relation Name Comments No Known Problems Brother No Known Problems Child 1 No Known Problems Child 2 No Known Problems Child 3 No Known Problems Father Diabetes Mother Cervical Cancer Sister 1 No Known Problems Sister 2 No Known Problems Sister 3 No Known Problems Sister 4 Relation Name Status Comments Brother Alive Child 1 Alive Child 2 Alive Child 3 Alive Father Alive Mother Sister 1 Alive Sister 2 Alive Sister 3 Alive Sister 4 Alive Social History Tobacco Use Types Packs/Day Years Used Date Smoking Tobacco: Never Smokeless Tobacco: Never Alcohol Use Standard Drinks/Week Comments Not Currently 0 (1 standard drink = 0.6 oz pur e alcohol) Comments No Sex and Gender Information Value Date Recorded Sex Assigned at Not on file Legal 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 Gender Identity Not on file Sexual Orientation Not on file Last Filed Vital Signs Vital Sign Reading Time Taken Comments Blood Pressure 106/70 11/26/2024 3:07 PM CDT Pulse 68 11/26/2024 3:07 PM CDT Temperature 35.5 C (95.9 F) 11/26/2024 3:07 PM CDT Respiratory Rate 17 11/26/2024 3:0 7 PM CDT Oxygen Saturation 98% 11/26/2024 3:0 7 PM CDT Inhaled Oxygen Concentration - - Weight 78.3 kg (172 lb 9.6 oz) 11/26/2024 3:07 PM CDT Patient stated that this is the correct weight Height 162.6 cm (5' 4 ) 11/26/2024 3:07 PM CDT Body Mass Index 29.63 11/26/2024 3:07 PM CDT Plan of Treatment Upcoming Encounters Date Type Department Care Team (Late st Contact Info) Description 12/03/2024 4:00 PM CDT Telephone Check Up [facility] Oncology and Hematology - [place] [address] [facility] [address] [place] [address] Fredrick Carroll MD [address] [facility] [employer] [address] [place] [address] Health Maintenance Due Date Last Done Comments HEPATITIS B VACCINES (1 of 3 - 19+ 3-dose series) 2009 CERVICAL CANCER SCREENING 2020 INFLUENZA VACCINE (#1) 2024 Preventative Visit- Commercial 09/19/2024 08/04/2022, 08/23/2019 DTAP/TDAP/TD VACCINES (7 - Td or Tdap) 04/16/2032 04/16/2022, 09/19/2014, 05/28/1993, Additional history exists HPV VACCINES Aged Out No longer eligi ble based on patient's age to complete this topic Medical Devices Implanted Type Area Data Conversion Analyst Device Identifier Shelf Expiration Date Model / Serial / Lot Seamguard Endogia 60 Prpl [id number] - [id number] Implanted:Qt y: 1 on 08/23/2022 by Pollo Groves MD at [facility] N/A: Stomach [employer] [id number] 04/04/2025 12BSGTRI 60P / / [id number] Seamguard Endogia 60 Prpl [id number] - [id number] Implanted:Qt y: 1 on 08/23/2022 by Pollo Groves MD at [facility] N/A: Stomach [employer] [id number] 04/04/2025 12BSGTRI 60P / / [id number] Seamguard Endogia 60 Blk [id number] - [id number] Implanted:Qt y: 1 on 08/23/2022 by Pollo Groves MD at [facility] N/A: Stomach [employer] [id number] 02/27/2025 12BSGTRI 60B / / [id number] Seamguard Endogia 60 Blk [id number] - [id number] Implanted:Qt y: 1 on 08/23/2022 by Pollo Groves MD at [facility] N/A: Stomach [employer] [id number] 02/27/2025 [id number] [id number] / / [id number] Insurance BCBS BLUE ACCESS/TRUE BLUE PPO RX EXPRESS SCRIPTS Express RX YAO PLANS (INTERNAL) [facility] Plans AETNA CHOICE POS II Advance Directives For more information, please contact: [phone] * Full Code (Latest Code Status on File) Date Activated Date Inactivated Comments 08/23/2022 6:15 PM 08/24/2022 9:49 PM * Full Code Date Activated Date Inactivated Comments 08/23/2022 8:15 AM 08/23/2022 6:14 PM Care Teams Director Of Automation Relationship Specialty Start Date End Date Andrew Barron DO [address] [place] [phone] PCP - General Family Practice 08/16/22
== END 2024-11-26 15:39 | disposition home or self-care (01) ==
LOC: ANHLAB 15:38
PROVIDERS: PCP Student in an Organized Health Care Education/Training Program; Visit Provider Internal Medicine Hematology & Oncology
DX: D64.9 Anemia, unspecified (principal)
CPT/HCPCS: 36415; 80053; 82607; 82728; 82746; 83540; 83550; 85025

== ENCOUNTER 2025-01-21 10:01 | Outpatient (CLI) | payer OTHER, SELFPAY ==
[2025-01-21 10:14] LABS: Hematocrit 31.4 % (37.0-47.0); Mean Corpuscular HGB Conc 31.8 g/dl (32-36); Mean Corpuscular Hemoglobin 26.1 pg (26-34); Mean Platelet Volume 9.6 fl (7.4-10.4); Platelet Count Result 307 k/mm3 (150-375); Red Blood Count 3.83 M/mm3 (4.2-5.4); Red Cell Distribution Width 15.1 % (11.5-14.5); White Blood Count 5.6 K/mm3 (4.5-10.0)
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
--- OUTSIDE RECORDS SUMMARY | 2025-01-21 10:51 | XMS_ITS | Clinical Summary ---
Author Organization [facility] Address [address] [place] [address] Phone Care Team Providers Care Avionics Integration Engineer Name Role Phone Andrew Barron DO Primary Care Provider + Allergies No known active allergies Medications No known medications Active Problems No known active problems Encounters Date Type Department Care Team Description 12/05/2024 External Device Data STL ABSTRACTION Provider, Abstract 12/03/2024 4:00 PM CDT Telephone Check Up [facility] Oncology and Hematology [facility] [address] [place] [address] Fredrick Carroll MD Chronic anemia (Primary Dx) 11/28/2024 External Device Data STL ABSTRACTION Provider, Abstract 11/27/2024 External Device Data STL ABSTRACTION Provider, Abstract 11/27/2024 Orders Only [facility] Oncology [facility] Hematology [facility] [address] [place] [address] Fredrick Carroll MD 11/26/2024 3:00 PM CDT Office Visit [facility] Oncology [facility] Hematology [facility] [address] [place] [address] Fredrick Carroll MD Chronic anemia (Primary Dx) 11/26/2024 External Device Data STL ABSTRACTION Provider, Abstract 11/24/2024 External Device Data STL ABSTRACTION Provider, Abstract 11/24/2024 External Device Data STL ABSTRACTION Provider, [...] on file 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 Gender Identity Not on file Sexual Orientation [...] Care Team (Late st Contact Info) Description 03/08/2025 12:00 PM CDT Office Visit [facility] Oncology and Hematology - Jamel [address] [facility] [address] [place] [address] Fredrick Carroll MD [address] [facility] [address] [place] [address] Health Maintenance Due Date Last Done Comments HEPATITIS B VACCINES (1 of 3 - 19+ 3-dose series) 2009 HPV/Cotest (21-29) 11/20/2011 CERVICAL CANCER SCREENING 2020 HPV/Cotest (30-65) 2020 PAP SMEAR 2020 INFLUENZA VACCINE (#1) 2024 Preventative Visit- Commercial 09/19/2024 08/04/2022, 08/23/2019 DTAP/TDAP/TD VACCINES (7 - Td or Tdap) 04/16/2032 04/16/2022, 09/19/2014, 05/28/1993, Additional history exists HPV VACCINES Aged Out No longer eligi ble based on patient's age to complete this topic Medical Devices Implanted Type Area Product Safety Tester Device Identifier Shelf Expiration Date Model / Serial / Lot Seamguard Endogia 60 Prpl [id number] - [id number] Implanted:Qt y: 1 on 08/23/2022 by Pollo Groves MD at [facility] N/A: Stomach [employer] [id number] 04/04/2025 12BSGTRI 60P / / [id number] Seamguard Endogia 60 Prpl [id number] - [id number] Implanted:Qt y: 1 on 08/23/2022 by Pollo Groves MD at [facility] N/A: Stomach [employer] [id number] 04/04/2025 12BSGTRI 60P / / [id number] Seamguard Endogia 60 Blk [id number] - [id number] Implanted:Qt y: 1 on 08/23/2022 by Pollo Groves MD at [facility] N/A: Stomach [employer] [id number] 02/27/2025 12BSGTRI 60B / / [id number] Seamguard Endogia 60 Blk [id number] - [id number] Implanted:Qt y: 1 on 08/23/2022 by Pollo Groves MD at [facility] N/A: Stomach [employer] [id number] 02/27/2025 12BSGTRI 60B / / [id number] Procedures Procedure Name Priority Date/Time Associated Diagnosis Comments COMPREHENSIVE METABOLIC PANEL Routine 11/26/2024 10:21 AM CDT from Last 3 Months Results * COMPREHENSIVE METABOLIC PANEL (11/26/2024 10:21 AM CDT) Blood Fredrick Carroll MD CHEMISTRY ORDERABLES Final Resu lt from Last 3 Months Insurance RX EXPRESS SCRIPTS Express RX YAO PLANS (INTERNAL) [facility] Plans AETNA CHOICE POS II Advance Directives For more information, please contact: [phone] * Full Code (Latest Code Status on File) Date Activated Date Inactivated Comments 08/23/2022 6:15 PM 08/24/2022 9:49 PM * Full Code Date Activated Date Inactivated Comments 08/23/2022 8:15 AM 08/23/2022 6:14 PM Care Teams Avionics Integration Engineer Relationship Specialty Start Date End Date Andrew Barron DO [address] [place] [phone] PCP - General Family Practice 08/16/22
--- OUTSIDE RECORDS SUMMARY | 2025-01-21 10:51 | XMS_ITS | Encounter Summary ---
Author Organization [facility] Address [facility] [place] [address] Care Team Providers Care Straw Baler Name Role Phone Andrew Barron DO Primary Care Provider + Encounter Details Date Type Department Care Team (Late Contact Info) Description 11/16/2022 Futuretect Message Enc [facility] Family & Internal Medicine [facility] [address] [place] [address] Andrew Barron DO [address] [place] [address] Possible injury Social History Tobacco [...] Sex Assigned at Female 10/02/2024 8:54 AM OUTSIDE ENERGY SALES REPRESENTATIVES Legal Sex Female 3:52 PM CDT Gender Identity Female 10/02/2024 8:54 AM OUTSIDE ENERGY SALES REPRESENTATIVES Sexual Orientation Not on file 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 Not on file Not on file documented as of this encounter Plan of Treatment Upcoming Encounters Date Type Department Care Team (Late st Contact Info) Description 01/30/2025 8:40 AM CDT Office Visit [facility] Family & Internal Medicine - [place] [address] [place] [address] Andrew Barron DO [address] [place] [address] documented as of this encounter Visit Diagnoses Not on filedocumented in this encounter Additional Health Concerns Assessment Noted Time PHQ-9 Depression Total Score: 0 10/04/19 20 11:02 AM OUTSIDE ENERGY SALES REPRESENTATIVES documented as of this encounter Care Teams Straw Baler Relationship Specialty Start Date End Date Andrew Barron DO [address] [place] [address] PCP - General FAMILY PRACTICE 08/23/19 documented as of this encounter
--- OUTSIDE RECORDS SUMMARY | 2025-01-21 10:51 | XMS_ITS | Clinical Summary ---
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
--- OUTSIDE RECORDS SUMMARY | 2025-01-21 10:51 | XMS_ITS | Encounter Summary ---
Author Organization [facility] Address [facility] [place] [address] Care Team Providers Care Chemistry Laboratory Technician Name Role Phone Andrew Barron DO Primary Care Provider + Encounter Details Date Type Department Care Team (Late st Contact Info) Description 01/16/2024 Vertisheart Message Enc [facility] Medical Group Family & Internal Medicine [facility] [address] [place] [address] Andrew Barron DO [address] [place] [address] Scan Referral Request Social History [...] Sex Assigned at Female 10/02/2024 8:54 AM MONUMENT INSTALLER Legal Sex Female 3:52 PM CDT Gender Identity Female 10/02/2024 8:54 AM MONUMENT INSTALLER Sexual Orientation Not on file Occupation Industry [...] Description 01/30/2025 8:40 AM CDT Office Visit [facility] Family & Internal Medicine - [address] [address] Andrew Barron DO [facility] [place] [address] documented as of this encounter Visit Diagnoses Not on filedocumented in this encounter Additional Health Concerns Assessment Noted Time PHQ-9 Depression Total Score: 0 10/04/19 20 11:02 AM MONUMENT INSTALLER documented as of this encounter Care Teams Chemistry Laboratory Technician Relationship Specialty Start Date End Date Andrew Barron DO [address] [place] [address] PCP - General FAMILY PRACTICE 08/23/19 documented as of this encounter
--- OUTSIDE RECORDS SUMMARY | 2025-01-21 10:51 | XMS_ITS | Clinical Summary ---
Author Organization [facility] Address [address] [facility] [place] [address] Care Team Providers Care Planning Engineer Name Role Phone Unavailable Primary Care Provider Unavailabl e Source Comments [facility],non-owned Affiliates and Associated Physician Practices is amultiple site organization consisting of ambulatory clinics and hospital sitesin [place], [place], [place] and [place]. This disclosure is being madepursuant to the Care Everywhere program and may not contain all information available regarding this patient. Last updated 18.[place] Allergies No known active allergies Medications * Be aware that medications may not be up to date on this document. Alwaysverify current medications with the patient. No known medications Social History Tobacco Use Types Packs/Day Years Used Date Smoking Tobacco: Never Assessed Comments Unknown Sex and Gender Information Value Date Recorded Sex Assigned at Not on file Legal Sex Female 12:52 PM CDT Gender Identity Not on file Sexual Orientation [...] Health Maintenance Due Date Last Done Comments HIV SCREENING 2005 HEPATITIS C SCREENING 11/14/2008 DTAP/TDAP/TD VACCINES (1 - Tdap) 2009 HEPATITIS B VACCINE (1 of 3 - 19+ 3-dose series) 2009 COVID-19 VACCINE (1 - 2023-2 5 season) 2024 DEPRESSION SCREENING 09/19/2024 INFLUENZA VACCINE (Season Ended) 2025 ZOSTER VACCINE (1 of 2) 2040 HIB VACCINE Aged Out No longer eligi ble based on patient's age to complete this topic HPV VACCINE Aged Out No longer eligi ble based on patient's age to complete this topic MENINGOCOCCAL (Group B) VACC INE SHARED DECISION-MAKING Aged Out No longer eligibl e based on patient's age to complete this topic MENINGOCOCCAL GROUPS A/C/Y/W VACCINE Aged Out No longer eligible b ased on patient's age to complete this topic PNEUMOCOCCAL VACCINE Aged Out No long er eligible based on patient's age to complete this topic Insurance
[2025-01-21 12:10] LABS: Iron 39 ug/dL (37-170)
[2025-01-21 12:20] LABS: Percent Iron Saturation 9 % (20-50)
[2025-01-21 12:45] LABS: Ferritin 4.36 ng/mL (6.24-137)
== END 2025-01-21 10:02 | disposition home or self-care (01) ==
LOC: ANHLAB 10:02
PROVIDERS: Visit Provider Internal Medicine Hematology & Oncology
DX: D64.9 Anemia, unspecified (principal)
CPT/HCPCS: 36415; 82728; 83540; 83550; 85027